=== PATIENT | female | born 1940 | race Caucasian/White ===

== ENCOUNTER 2020-01-16 11:30 | Outpatient (CLI) | payer MEDICARE ==
--- NOTE | 2020-01-16 12:07 | RAD ---
PA AND LATERAL VIEWS CHEST: HISTORY: Shortness of breath. Coronary artery disease. FINDINGS: Comparison is made with the exam of 02/13/2019. The heart size is borderline. The lungs are expanded without focal areas of consolidation, pneumotho races, or pleural effusions. There is no evidence of joe pulmonary edema. Postop changes of left shoulder arthroplasty are again seen. There are degenerative changes in the spine. IMPRESSION: No radiographic evidence of acute cardiopulmonary process. POS: OFF
[2020-01-16 14:04] LABS: #Eosinphils 0.1 thou/uL (0.0-0.7); #Lymphocytes 1.8 thou/uL (1.20-3.40); #Monocytes 0.8 thou/uL (0.11-0.59); #Neutrophils 6.9 thou/uL (1.40-6.50); %Basophils 0.4 % (0.0-1.0); %Eosinophils 1.2 % (0.0-10.0); %Monocytes 7.8 % (0.0-10.0); %Neutrophils 71.7 % (42.0-75.0); Hemoglobin 12.4 g/dL (12.0-16.0); Mean Corpuscular HGB CONC 33.1 g/dL (32.0-36.0); Mean Corpuscular Hemoglobin 30.3 pg (27.0-31.0); Mean Corpuscular Volume 91.5 fL (78.0-98.0); Mean Platelet Volume 10.2 fL (7.4-10.4); Platelet Count 170 thou/uL (130-400); RBC Distribution Width 13.5 % (11.5-14.5); White Blood Cell (WBC) Count 9.6 thou/uL (4.8-10.8)
[2020-01-16 14:22] LABS: ALT (SGPT) 19 U/L (8-55); AST (SGOT) 27 U/L (5-34); Albumin 4.3 g/dL (3.4-4.8); Alkaline Phosphatase 90 U/L (40-110); Anion Gap 16 mmol/L (10-20); BUN (Urea Nitrogen) 16 mg/dL (9.8-20.1); Bilirubin, Total 0.4 mg/dL (0.2-1.2); Calc. Creatinine Clearance 0 mL/min (70-130); Calcium 9.7 mg/dL (7.8-10.44); Carbon Dioxide 25 mmol/L (23-31); Cardiac Risk 5.3 (Less than 4.5); Chloride 104 mmol/L (98-107); Cholesterol 243 mg/dl (< 200 Desired); Estimated GFR-MDRD 45; Glucose 107 mg/dL (83-110); HDL Cholesterol 46 mg/dL (>60 Neg Risk); LDL Cholesterol, Calculated 162 mg/dL; Potassium 3.9 mmol/L (3.5-5.1); Protein, Total 7.3 g/dL (6.0-8.3); Sodium 141 mmol/L (136-145); Triglycerides 175 mg/dL (Less than 150)
[2020-01-16 14:34] LABS: Thyroid Stimulating Hormone 2.3469 uIU/mL (0.35-4.94); Vitamin D, 25 Hydroxy 58.2 ng/ml (> 30.0)
== END 2020-01-16 11:31 | disposition home or self-care (01) ==
LOC: SCSRAD 11:30
PROVIDERS: ATTEND Family Medicine
DX: R05 Cough (principal); E55.9 Vitamin D deficiency, unspecified; E78.00 Pure hypercholesterolemia, unspecified; I10 Essential (primary) hypertension
CPT/HCPCS: 36415; 71046; 80053; 80061; 82306; 84443; 85025

== ENCOUNTER 2020-02-20 10:15 | Outpatient (CLI) | payer MEDICARE ==
--- NOTE | 2020-02-20 11:00 | RAD ---
Exam:3 views left shoulder HISTORY: Fall. Trauma. Pain. Previous fracture. COMPARISON: None FINDINGS: Left humeral prosthesis. No evidence of perihardware lucency. No evidence of malalignment. No acute fractures. Visualized left ribs and lung parenchyma do not demonstrate posttraumatic change. IMPRESSION: No posttraumatic change.
--- NOTE | 2020-02-20 11:06 | RAD ---
Radiograph left leg tibia-fibula 2 views: 02/20/2020 HISTORY: 79-year-old female with acute traumatic left leg pain due to fall FINDINGS: There is an arterial stent within a branch of the popliteal artery in the proximal calf. There is ath erosclerotic calcification superior to that. There is no fracture of the tibia or fibula. IMPRESSION: 1. No fracture. 2. Atherosclerotic disease.
--- NOTE | 2020-02-21 09:30 | RAD ---
LEFT FOOT 3 VIEWS: Date: 02/20/2020 HISTORY: Pain following injury from a fall. FINDINGS: Nondisplaced transverse fracture through the proximal portion of the proximal phalanx of the fifth to e. There is evidence for osteoarthrosis and degenerative change. No acute fracture or dislocation. IMPRESSION: Nondisplaced transverse fracture through the base of the proximal phalanx of the fifth toe. Osteoarth rosis and degenerative change. POS: OFF
--- NOTE | 2020-02-21 09:30 | RAD ---
LEFT HUMERUS 2 VIEWS: HISTORY: Pain, injury from a fall. FINDINGS: Reverse total left shoulder arthroplasty. No evidence for dislocation or periprosthetic fracture. IMPRESSION: Status post left shoulder reverse arthroplasty. No fracture or dislocation. POS: OFF
== END 2020-02-20 10:16 | disposition home or self-care (01) ==
LOC: SCSRAD 10:15
PROVIDERS: ATTEND Family Medicine
DX: M25.512 Pain in left shoulder (principal); S92.515A Nondisplaced fracture of proximal phalanx of left lesser toe(s), initial encounter for closed fracture; M19.072 Primary osteoarthritis, left ankle and foot; I70.90 Unspecified atherosclerosis; Z96.612 Presence of left artificial shoulder joint; W19.XXXA Unspecified fall, initial encounter

== ENCOUNTER 2020-07-21 09:31 | Outpatient (CLI) | payer MEDICARE ==
--- NOTE | 2020-07-21 10:02 | RAD ---
CHEST 2 VIEWS: Date: 07/21/2020 HISTORY: Dyspnea. COMPARISON: 01/16/2020. FINDINGS: Stable left reverse shoulder arthroplasty. Heart size is normal. The lungs show no acute process. Mil d stable chronic appearing lung changes. IMPRESSION: No significant acute intrathoracic disease. POS: OFF
== END 2020-07-21 09:32 | disposition home or self-care (01) ==
LOC: BICRAD 09:31
PROVIDERS: ATTEND Internal Medicine Pulmonary Disease
DX: R06.00 Dyspnea, unspecified (principal)
CPT/HCPCS: 71046

== ENCOUNTER 2020-11-26 10:20 | Outpatient (CLI) | payer MEDICARE | END 2020-11-26 10:21 | disposition home or self-care (01) | LOC: SCSRAD 10:20 | PROVIDERS: ATTEND Family Medicine | DX: W19.XXXS Unspecified fall, sequela (principal); M47.816 Spondylosis without myelopathy or radiculopathy, lumbar region; M43.16 Spondylolisthesis, lumbar region | CPT/HCPCS: 72120 ==

== ENCOUNTER 2021-07-09 18:10 | Inpatient (IN) | payer OTHER ==
[2021-07-09] MEDS ORDERED: Ondansetron PF 4 MG/2 ML Vial IVP PRN (23:34)
[2021-07-09] MEDS ORDERED: Acetaminophen 325 MG TAB PO PRN (23:34)
[2021-07-10] MEDS ORDERED: Pramipexole Di-HCl 0.25 MG TAB PO SCH (00:15)
[2021-07-10 01:05] LABS: Anion Gap 15 mmol/L (10-20); BUN (Urea Nitrogen) 14 mg/dL (9.8-20.1); Calc. Creatinine Clearance 49 mL/min (70-130); Calcium 8.6 mg/dL (7.8-10.44); Carbon Dioxide 26 mmol/L (23-31); Chloride 104 mmol/L (98-107); Glucose 113 mg/dL (83-110); Magnesium 1.8 mg/dL (1.6-2.6); Potassium 3.8 mmol/L (3.5-5.1); Sodium 141 mmol/L (136-145)
[2021-07-10 05:41] LABS: #Eosinphils 0.2 thou/uL (0.0-0.7); #Lymphocytes 1.6 thou/uL (1.20-3.40); #Monocytes 0.7 thou/uL (0.11-0.59); #Neutrophils 4.3 thou/uL (1.40-6.50); %Basophils 0.7 % (0.0-1.0); %Eosinophils 2.6 % (0.0-10.0); %Lymphocytes 23.4 % (21.0-51.0); %Monocytes 10.6 % (0.0-10.0); %Neutrophils 62.7 % (42.0-75.0); Hemoglobin 10.3 g/dL (12.0-16.0); Mean Corpuscular HGB CONC 31.9 g/dL (32.0-36.0); Mean Corpuscular Hemoglobin 29.9 pg (27.0-31.0); Mean Corpuscular Volume 93.6 fL (78.0-98.0); Mean Platelet Volume 9.6 fL (7.4-10.4); Platelet Count 143 thou/uL (130-400); RBC Distribution Width 13.6 % (11.5-14.5); Red Blood Cell (RBC) Count 3.43 mill/uL (4.20-5.40); White Blood Cell (WBC) Count 6.8 thou/uL (4.8-10.8)
[2021-07-10 05:54] LABS: Magnesium 1.8 mg/dL (1.6-2.6)
[2021-07-10] MEDS ORDERED: Furosemide 40 MG/4 ML VIAL SLOW IVP SCH (06:00)
[2021-07-10] MEDS ORDERED: Acetaminophen 325 MG TAB PO PRN (08:05)
[2021-07-10] MEDS ORDERED: hydrALAZINE 20 MG/ML VIAL SLOW IVP PRN (08:08)
[2021-07-10] MEDS ORDERED: Acetaminophen 500 MG TAB PO PRN (08:08)
[2021-07-10] MEDS ORDERED: Nitroglycerin 0.4 MG TAB (25 Tab Bottle) SL PRN (08:08)
[2021-07-10] MEDS ORDERED: Loratadine 10 MG TAB PO PRN (08:08)
[2021-07-10] MEDS ORDERED: Labetalol HCl 100 MG/20 ML VIAL SLOW IVP PRN (08:08)
[2021-07-10] MEDS ORDERED: Acetaminophen 650 MG Suppository PR PRN (08:08)
[2021-07-10] MEDS ORDERED: Senokot S 8.6-50 MG TAB PO PRN (08:08)
[2021-07-10] MEDS ORDERED: Artificial Tear Sol 15 ML BOT EA EYE PRN (08:08)
[2021-07-10] MEDS ORDERED: FLU VACC QS2021-22(65YR UP)/PF 240 MCG/0.7 ML SYRINGE IM ONE (09:00)
[2021-07-10] MEDS ORDERED: Acetaminophen 325 MG Suppository PR PRN (09:46)
[2021-07-10] MEDS: Amlodipine 10 MG TAB PO SCH (10:14)
[2021-07-10] MEDS: Escitalopram Oxalate 20 mg Tablet PO SCH (10:14)
[2021-07-10] MEDS: Enoxaparin Sodium 40 MG/0.4 ML SYRINGE SC SCH (10:14)
[2021-07-10] MEDS: Acetaminophen 325 MG TAB PO PRN ×2 (10:48→15:12)
[2021-07-10] MEDS ORDERED: Aspirin 81 mg Enteric Coated Tablet PO SCH (12:15)
[2021-07-10] MEDS ORDERED: Valsartan 80 MG TAB PO SCH (12:30)
[2021-07-10] MEDS: Furosemide 20 MG/2 ML VIAL SLOW IVP SCH (14:53)
[2021-07-10] MEDS: Carvedilol 3.125 MG TAB PO SCH (17:22)
[2021-07-10] MEDS ORDERED: Atorvastatin Calcium 40 MG TAB PO SCH (21:00)
[2021-07-10] MEDS: Rosuvastatin 10 MG TAB PO SCH (21:20)
[2021-07-10] MEDS: Pramipexole Di-HCl 0.25 MG TAB PO SCH (21:20)
[2021-07-11] MEDS: Acetaminophen 325 MG TAB PO PRN ×2 (03:00→23:15)
[2021-07-11 04:57] LABS: #Eosinphils 0.2 thou/uL (0.0-0.7); #Lymphocytes 1.7 thou/uL (1.20-3.40); #Monocytes 0.7 thou/uL (0.11-0.59); #Neutrophils 3.5 thou/uL (1.40-6.50); %Basophils 0.6 % (0.0-1.0); %Eosinophils 3.1 % (0.0-10.0); %Lymphocytes 28.4 % (21.0-51.0); %Monocytes 10.9 % (0.0-10.0); %Neutrophils 57.1 % (42.0-75.0); Hemoglobin 10.5 g/dL (12.0-16.0); Mean Corpuscular HGB CONC 33.3 g/dL (32.0-36.0); Mean Corpuscular Hemoglobin 30.9 pg (27.0-31.0); Mean Corpuscular Volume 92.9 fL (78.0-98.0); Mean Platelet Volume 9.6 fL (7.4-10.4); Platelet Count 157 thou/uL (130-400); RBC Distribution Width 13.4 % (11.5-14.5); Red Blood Cell (RBC) Count 3.41 mill/uL (4.20-5.40); White Blood Cell (WBC) Count 6.1 thou/uL (4.8-10.8)
[2021-07-11 05:33] LABS: Anion Gap 16 mmol/L (10-20); BUN (Urea Nitrogen) 20 mg/dL (9.8-20.1); Calc. Creatinine Clearance 50 mL/min (70-130); Carbon Dioxide 27 mmol/L (23-31); Chloride 101 mmol/L (98-107); Glucose 106 mg/dL (83-110); Iron 40 ug/dL (50-170); Iron Binding Capacity, Total 356 mcg/dL (265-497); Iron Binding Capacity, Total 358 mcg/dL (265-497); Magnesium 1.7 mg/dL (1.6-2.6); Potassium 3.6 mmol/L (3.5-5.1); Sodium 140 mmol/L (136-145)
[2021-07-11] MEDS: Furosemide 20 MG/2 ML VIAL SLOW IVP SCH (06:06)
[2021-07-11] MEDS: Valsartan 80 MG TAB PO SCH (09:07)
[2021-07-11] MEDS: Aspirin 81 mg Enteric Coated Tablet PO SCH (09:07)
[2021-07-11] MEDS: Escitalopram Oxalate 20 mg Tablet PO SCH (09:08)
[2021-07-11] MEDS: Amlodipine 10 MG TAB PO SCH (09:08)
[2021-07-11] MEDS: Carvedilol 3.125 MG TAB PO SCH ×2 (09:08→17:40)
[2021-07-11] MEDS: Ferrous Sulfate 325 MG TAB PO SCH (09:08)
[2021-07-11] MEDS: Enoxaparin Sodium 40 MG/0.4 ML SYRINGE SC SCH (09:08)
[2021-07-11 14:58] LABS: Bilirubin Negative (Negative); Blood, Urine Negative (Negative); Clarity Clear (Clear); Glucose, Urine (Dipstick) Normal (Negative); Ketone, Urine Negative (Negative); Leukocyte Negative Leu/uL (Negative); Nitrite Negative (Negative); Protein, Urine (Dipstick) Negative (Neg-Trace); RBC/HPF 0-3 HPF (0-3); Specific Gravity, Urine 1.019 (1.002-1.036); Squamous Epithelial 0-3 HPF (0-3); Urobilinogen Normal mg/dL (Less than 2); WBC/HPF 0-3 HPF (0-3); pH, Urine 5.5 (5.0-9.0)
[2021-07-11 14:59] LABS: Bacteria/HPF Rare-Few HPF (None Seen)
[2021-07-11] MEDS: Pramipexole Di-HCl 0.25 MG TAB PO SCH (20:45)
[2021-07-11] MEDS: Rosuvastatin 10 MG TAB PO SCH (20:45)
[2021-07-12 05:08] LABS: #Eosinphils 0.2 thou/uL (0.0-0.7); #Lymphocytes 1.6 thou/uL (1.20-3.40); #Monocytes 0.5 thou/uL (0.11-0.59); #Neutrophils 4.1 thou/uL (1.40-6.50); %Basophils 0.6 % (0.0-1.0); %Eosinophils 3.3 % (0.0-10.0); %Lymphocytes 24.6 % (21.0-51.0); %Monocytes 8.3 % (0.0-10.0); %Neutrophils 63.2 % (42.0-75.0); Hemoglobin 10.5 g/dL (12.0-16.0); Mean Corpuscular HGB CONC 32.8 g/dL (32.0-36.0); Mean Corpuscular Hemoglobin 30.1 pg (27.0-31.0); Mean Corpuscular Volume 91.7 fL (78.0-98.0); Mean Platelet Volume 9.9 fL (7.4-10.4); Platelet Count 157 thou/uL (130-400); RBC Distribution Width 13.4 % (11.5-14.5); Red Blood Cell (RBC) Count 3.49 mill/uL (4.20-5.40); White Blood Cell (WBC) Count 6.5 thou/uL (4.8-10.8)
[2021-07-12 05:16] LABS: Anion Gap 14 mmol/L (10-20); BUN (Urea Nitrogen) 22 mg/dL (9.8-20.1); Calc. Creatinine Clearance 45 mL/min (70-130); Calcium 9.1 mg/dL (7.8-10.44); Carbon Dioxide 28 mmol/L (23-31); Chloride 102 mmol/L (98-107); Glucose 140 mg/dL (83-110); Magnesium 1.8 mg/dL (1.6-2.6); Potassium 3.6 mmol/L (3.5-5.1); Sodium 140 mmol/L (136-145)
[2021-07-12] MEDS: Benzonatate 100 MG CAP PO PRN ×2 (06:25→23:23)
[2021-07-12] MEDS: Aspirin 81 mg Enteric Coated Tablet PO SCH (08:22)
[2021-07-12] MEDS: Ferrous Sulfate 325 MG TAB PO SCH (08:22)
[2021-07-12] MEDS: Spironolactone 25 MG TAB PO SCH (08:22)
[2021-07-12] MEDS: Valsartan 80 MG TAB PO SCH (08:22)
[2021-07-12] MEDS: Escitalopram Oxalate 20 mg Tablet PO SCH (08:22)
[2021-07-12] MEDS: Cyanocobalamin (Vitamin B-12) 1,000 MCG TAB PO SCH (08:22)
[2021-07-12] MEDS: Amlodipine 10 MG TAB PO SCH (08:23)
[2021-07-12] MEDS: Carvedilol 3.125 MG TAB PO SCH (08:23)
[2021-07-12] MEDS: Enoxaparin Sodium 40 MG/0.4 ML SYRINGE SC SCH (08:24)
[2021-07-12] MEDS ORDERED: Carvedilol 3.125 MG TAB PO SCH (09:30)
[2021-07-12] MEDS: Carvedilol 6.25 MG TAB PO SCH (16:53)
[2021-07-12] MEDS: Rosuvastatin 10 MG TAB PO SCH (20:43)
[2021-07-12] MEDS: Acetaminophen 325 MG TAB PO PRN (20:43)
[2021-07-12] MEDS: Pramipexole Di-HCl 0.25 MG TAB PO SCH (20:43)
[2021-07-13 05:56] LABS: Anion Gap 13 mmol/L (10-20); BUN (Urea Nitrogen) 23 mg/dL (9.8-20.1); Calc. Creatinine Clearance 47 mL/min (70-130); Calcium 9.4 mg/dL (7.8-10.44); Carbon Dioxide 27 mmol/L (23-31); Chloride 104 mmol/L (98-107); Glucose 104 mg/dL (83-110); Potassium 4.2 mmol/L (3.5-5.1); Sodium 140 mmol/L (136-145)
[2021-07-13] MEDS ORDERED: Communication Order-Pharmacy FS SCH (06:36)
[2021-07-13] MEDS ORDERED: Vancomycin 1 GM in Premix Bag 1 BAG IVPB SCH (07:00)
[2021-07-13] MEDS: Carvedilol 6.25 MG TAB PO SCH ×2 (08:43→16:26)
[2021-07-13] MEDS: Ferrous Sulfate 325 MG TAB PO SCH (08:43)
[2021-07-13] MEDS: Escitalopram Oxalate 20 mg Tablet PO SCH (08:44)
[2021-07-13] MEDS: Spironolactone 25 MG TAB PO SCH (08:44)
[2021-07-13] MEDS: Amlodipine 10 MG TAB PO SCH (08:44)
[2021-07-13] MEDS: Valsartan 80 MG TAB PO SCH (08:44)
[2021-07-13] MEDS: Cyanocobalamin (Vitamin B-12) 1,000 MCG TAB PO SCH (08:44)
[2021-07-13] MEDS: Enoxaparin Sodium 40 MG/0.4 ML SYRINGE SC SCH (08:45)
[2021-07-13] MEDS: Benzonatate 100 MG CAP PO PRN (19:46)
[2021-07-13] MEDS: Rosuvastatin 10 MG TAB PO SCH (19:46)
[2021-07-13] MEDS: Pramipexole Di-HCl 0.25 MG TAB PO SCH (19:46)
[2021-07-13] MEDS: Acetaminophen 325 MG TAB PO PRN (19:47)
[2021-07-14] MEDS: Cyanocobalamin (Vitamin B-12) 1,000 MCG TAB PO SCH (05:06)
[2021-07-14] MEDS: Spironolactone 25 MG TAB PO SCH (05:06)
[2021-07-14] MEDS: Amlodipine 10 MG TAB PO SCH (05:06)
[2021-07-14] MEDS: Ferrous Sulfate 325 MG TAB PO SCH (05:06)
[2021-07-14] MEDS: Escitalopram Oxalate 20 mg Tablet PO SCH (05:07)
[2021-07-14] MEDS: Carvedilol 6.25 MG TAB PO SCH (05:07)
[2021-07-14] MEDS: Valsartan 80 MG TAB PO SCH (05:07)
[2021-07-14 05:33] LABS: Anion Gap 13 mmol/L (10-20); BUN (Urea Nitrogen) 20 mg/dL (9.8-20.1); Calc. Creatinine Clearance 43 mL/min (70-130); Calcium 9.2 mg/dL (7.8-10.44); Carbon Dioxide 28 mmol/L (23-31); Chloride 106 mmol/L (98-107); Glucose 98 mg/dL (83-110); Potassium 4.2 mmol/L (3.5-5.1); Sodium 143 mmol/L (136-145)
[2021-07-14] MEDS ORDERED: Albumin 5% 500 ML ONE (06:32)
[2021-07-14] MEDS ORDERED: Fentanyl 250 MCG/5 ML VIAL ONE (06:35)
[2021-07-14] MEDS ORDERED: Midazolam HCl 5 mg/5 ml Vial ONE (06:35)
[2021-07-14] MEDS ORDERED: Lidocaine 1% MPF 2 ML VIAL ONE (06:37)
[2021-07-14] MEDS ORDERED: Heparin 10,000 UNITS/1 ML VIAL 30,000 UNITS in Sodium Chloride 0.9% 1,000 ML FS SCH (07:00)
[2021-07-14] MEDS ORDERED: ceFAZolin 2 GM/DEX 5% 100 ML BAG ONE (07:20)
[2021-07-14] MEDS ORDERED: DOPamine 400 MG/10 ML VIAL ONE (07:42)
[2021-07-14] MEDS ORDERED: Calcium Chloride 1 GM/10 ML Abboject SYRINGE ONE (07:42)
[2021-07-14] MEDS ORDERED: Mannitol 12.5 GM/50 ML ONE (07:42)
[2021-07-14] MEDS ORDERED: Ondansetron PF 4 MG/2 ML Vial ONE (07:42)
[2021-07-14] MEDS ORDERED: Lidocaine 2% PF 100 mg/5 ml Syringe ONE (07:42)
[2021-07-14] MEDS ORDERED: PROPOFOL 200 MG/20 ML VIAL ONE (07:42)
[2021-07-14] MEDS ORDERED: Heparin 5,000 UNITS/ML VIAL ONE (07:42)
[2021-07-14] MEDS ORDERED: Vecuronium 10 MG VIAL ONE (07:42)
[2021-07-14] MEDS ORDERED: Thrombin 5000 UNITS/5 ML VIAL ONE (07:42)
[2021-07-14] MEDS ORDERED: Dexamethasone 20 MG/5 ML VIAL ONE (07:42)
[2021-07-14] MEDS ORDERED: Protamine Sulfate 250 MG/25 ML VIAL ONE (07:42)
[2021-07-14] MEDS ORDERED: Rocuronium Bromide 10 MG/ML (10ML VIAL) ONE (07:42)
[2021-07-14] MEDS ORDERED: Cardioplegic Soln 1,000 ML BAG ONE (07:42)
[2021-07-14] MEDS ORDERED: Heparin 30,000 units/30 ml VIAL ONE (07:42)
[2021-07-14] MEDS ORDERED: Aminocaproic Acid 5 GM/20 ML VIAL ONE (07:42)
[2021-07-14] MEDS ORDERED: Sodium Bicarb 50 MEQ/50 ML Abboject 8.4% SYRINGE ONE (07:42)
[2021-07-14] MEDS ORDERED: Magnesium Sulfate 1 GM/2 ML VIAL ONE (07:42)
[2021-07-14] MEDS ORDERED: Potassium Chloride 60 MEQ/30 ML VIAL ONE (07:42)
[2021-07-14] MEDS ORDERED: Papaverine 60 MG/2 ML VIAL ONE (07:42)
[2021-07-14] MEDS ORDERED: PHENYLEPHRINE-NS 100 MCG/ML 10 ML SYRINGE ONE (10:20)
[2021-07-14] MEDS ORDERED: Nitroglycerin 50 MG/250 ML BOT 250 ML IVPB PRN (10:54)
[2021-07-14] MEDS ORDERED: Morphine 2 MG/ML VIAL SLOW IVP PRN (10:54)
[2021-07-14] MEDS ORDERED: Bisacodyl 10 MG SUPP PR PRN (10:54)
[2021-07-14] MEDS ORDERED: Norepinephrine 8 MG/0.9% NS 250 ML IVPB PRN (10:54)
[2021-07-14] MEDS ORDERED: niCARdipine 25 MG in Sodium Chloride 0.9% 250 ML 250 ML IVPB PRN (10:54)
[2021-07-14] MEDS ORDERED: Fentanyl 100 MCG/2 ML VIAL SLOW IVP PRN (10:54)
[2021-07-14] MEDS ORDERED: Hetastarch 6% 500 ML 500 ML IVPB PRN (10:54)
[2021-07-14] MEDS ORDERED: Mag-Al 1200 mg/1200 mg/30 ML UDCUP PO PRN (10:54)
[2021-07-14] MEDS ORDERED: Bisacodyl 5 MG TAB PO PRN (10:54)
[2021-07-14] MEDS ORDERED: Post-Op Insulin Drip Protocol IVPB ONE (10:54)
[2021-07-14] MEDS ORDERED: Potassium Chloride 20 MEQ/100 ML PREMIX BAG IVPB PRN (10:54)
[2021-07-14] MEDS ORDERED: Guaifenesin DM 100-10/5 ML UDCUP PO PRN (10:54)
[2021-07-14] MEDS: Lactated Ringer's 1,000 ML IV SCH (11:20)
[2021-07-14 11:25] LABS: Hemoglobin 11.5 g/dL (12.0-16.0); Mean Corpuscular HGB CONC 32.6 g/dL (32.0-36.0); Mean Corpuscular Hemoglobin 30.3 pg (27.0-31.0); Mean Platelet Volume 9.8 fL (7.4-10.4); Platelet Count 150 thou/uL (130-400); RBC Distribution Width 13.5 % (11.5-14.5); Red Blood Cell (RBC) Count 3.77 mill/uL (4.20-5.40)
[2021-07-14] MEDS ORDERED: Dextrose 5% in Water 1,000 ML IV PRN (11:30)
[2021-07-14] MEDS ORDERED: Morphine 4 MG/ML VIAL SLOW IVP PRN (11:30)
[2021-07-14] MEDS ORDERED: HUMULIN R 100 UNITS in Sodium Chloride 0.9% 100 ML IVPB SCH (11:30)
[2021-07-14] MEDS ORDERED: Dextrose 50% Abboject 50 ML SYRINGE SLOW IVP PRN (11:30)
[2021-07-14 11:37] LABS: Anion Gap 15 mmol/L (10-20); BUN (Urea Nitrogen) 18 mg/dL (9.8-20.1); Calc. Creatinine Clearance 50 mL/min (70-130); Calcium 8.2 mg/dL (7.8-10.44); Carbon Dioxide 21 mmol/L (23-31); Chloride 108 mmol/L (98-107); Glucose 222 mg/dL (83-110); Sodium 139 mmol/L (136-145)
[2021-07-14 11:38] LABS: INR-International Normal Ratio 1.2; PTT 29.1 sec (22.9-36.1); Prothrombin Time 15.7 sec (12.0-14.7)
[2021-07-14 12:04] LABS: Actual Bicarbonate (HCO3a) 22.4 mEq/L (22-28); Base Excess (BEa) -2.2 mEq/L (-2.0 to +3.0); CO2 Tension 37.7 mmHg (35.0-45.0); Calcium, Ionized (arterial) 1.11 mmol/L (1.12-1.30); Carboxyhemoglobin (COHb) 0.1 gm% (0.0-3.0); Hemoglobin (Hb) 11.8 g/dL (12.0-16.0); O2 Tension (PaO2), arterial 86.5 mmHg (> 70.0); Potassium - ABG Lab 4.86 mmol/L (3.70-5.30); Puncture Site Arterial Line; pH, Arterial 7.39 (7.35-7.45)
[2021-07-14 12:05] LABS: ALV-art Gradient 222.875 mmHg (0-20)
[2021-07-14 12:42] LABS: Band 20 % (5-11); Eosinophils 1 % (0-10); Lymphocytes 9 % (21-51); MDiff Complete? YES; Metamyelocyte 2 % (0-0); Monocytes 2 % (0-10); Neutrophil 66 % (42-75); Platelet Morphology Comment Appears Adequate; Polychromasia SLIGHT = 2-3 cells (100X) (0-2/hpf)
[2021-07-14] MEDS ORDERED: ceFAZolin Sodium/D5W 2 GM in Premix Bag 1 BAG IVPB SCH (16:00)
[2021-07-14] MEDS: ceFAZolin 2 GM/Dextrose 50 ML 2 GM in Premix Bag 1 BAG IVPB SCH (16:13)
[2021-07-14 16:50] LABS: Hemoglobin 13.4 g/dL (12.0-16.0)
[2021-07-14 17:04] LABS: Potassium 3.8 mmol/L (3.5-5.1)
[2021-07-14] MEDS: Fentanyl 100 MCG/2 ML VIAL SLOW IVP PRN (17:39)
[2021-07-14] MEDS: Enoxaparin Sodium 40 MG/0.4 ML SYRINGE SC SCH (19:28)
[2021-07-14] MEDS ORDERED: Famotidine/PF 20 mg/2ml Vial SLOW IVP SCH (21:00)
[2021-07-14 23:37] LABS: Actual Bicarbonate (HCO3a) 21.7 mEq/L (22-28); Base Excess (BEa) -3.8 mEq/L (-2.0 to +3.0); CO2 Tension 41.4 mmHg (35.0-45.0); Hemoglobin (Hb) 13.7 g/dL (12.0-16.0); pH, Arterial 7.34 (7.35-7.45)
[2021-07-15] MEDS: DOPamine 400 MG/D5W 250 ML 250 ML IVPB PRN ×2 (00:26→14:57)
[2021-07-15] MEDS: Fentanyl 100 MCG/2 ML VIAL SLOW IVP PRN ×6 (00:26→19:47)
[2021-07-15] MEDS: ceFAZolin 2 GM/Dextrose 50 ML 2 GM in Premix Bag 1 BAG IVPB SCH ×2 (00:26→08:30)
[2021-07-15] MEDS: Lactated Ringer's 1,000 ML IV SCH ×2 (00:27→14:58)
[2021-07-15 04:44] LABS: Anion Gap 14 mmol/L (10-20); BUN (Urea Nitrogen) 23 mg/dL (9.8-20.1); Calc. Creatinine Clearance 34 mL/min (70-130); Calcium 8.8 mg/dL (7.8-10.44); Carbon Dioxide 21 mmol/L (23-31); Chloride 110 mmol/L (98-107); Glucose 148 mg/dL (83-110); Potassium 5.3 mmol/L (3.5-5.1); Sodium 140 mmol/L (136-145)
[2021-07-15 05:03] LABS: Band 15 % (5-11); Hemoglobin 12.9 g/dL (12.0-16.0); Lymphocytes 1 % (21-51); MDiff Complete? YES; Mean Corpuscular HGB CONC 31.8 g/dL (32.0-36.0); Mean Corpuscular Hemoglobin 29.9 pg (27.0-31.0); Mean Corpuscular Volume 93.9 fL (78.0-98.0); Mean Platelet Volume 10.1 fL (7.4-10.4); Monocytes 10 % (0-10); Neutrophil 74 % (42-75); Platelet Count 160 thou/uL (130-400); RBC Distribution Width 13.8 % (11.5-14.5); Red Blood Cell (RBC) Count 4.32 mill/uL (4.20-5.40); White Blood Cell (WBC) Count 28.1 thou/uL (4.8-10.8)
[2021-07-15] MEDS: HYDROcodone/Acetaminophen 5/325 mg Tablet PO PRN ×5 (05:48→21:09)
[2021-07-15] MEDS ORDERED: Lantus 1000 UNITS/10 ML VIAL SC SCH (08:45)
[2021-07-15] MEDS ORDERED: Aspirin 325 MG TAB PO SCH (09:00)
[2021-07-15] MEDS: Ondansetron PF 4 MG/2 ML Vial IVP PRN (09:31)
[2021-07-15] MEDS: Polyethylene Glycol 3350 17 GM Packet PO SCH (09:32)
[2021-07-15] MEDS: Famotidine/PF 20 mg/2ml Vial SLOW IVP SCH ×2 (09:32→20:00)
[2021-07-15] MEDS: Insulin Regular 300 UNITS/3 ML VIAL SC PRN ×2 (11:43→17:15)
[2021-07-15] MEDS ORDERED: Fentanyl 100 MCG/2 ML VIAL ONE (13:45)
[2021-07-15] MEDS: Amiodarone 450 MG, Admixture Fee 1 EACH in Dextrose 5% in Water 250 ML IVPB SCH (23:20)
[2021-07-16 00:13] LABS: O2 Tension (PaO2), arterial 52.8 mmHg (> 70.0)
[2021-07-16 00:14] LABS: Puncture Site Arterial Line
[2021-07-16] MEDS: HYDROcodone/Acetaminophen 5/325 mg Tablet PO PRN ×2 (00:18→03:58)
[2021-07-16] MEDS: Fentanyl 100 MCG/2 ML VIAL SLOW IVP PRN (02:18)
[2021-07-16] MEDS: Lactated Ringer's 1,000 ML IV SCH ×2 (03:43→08:24)
[2021-07-16 05:04] LABS: #Lymphocytes 1.4 thou/uL (1.20-3.40); #Monocytes 1.5 thou/uL (0.11-0.59); #Neutrophils 17.6 thou/uL (1.40-6.50); %Basophils 0.1 % (0.0-1.0); %Eosinophils 0.1 % (0.0-10.0); %Lymphocytes 6.6 % (21.0-51.0); %Monocytes 7.5 % (0.0-10.0); %Neutrophils 85.6 % (42.0-75.0); Mean Corpuscular HGB CONC 32.4 g/dL (32.0-36.0); Mean Corpuscular Hemoglobin 30.3 pg (27.0-31.0); Mean Corpuscular Volume 93.7 fL (78.0-98.0); Mean Platelet Volume 10.5 fL (7.4-10.4); Platelet Count 133 thou/uL (130-400); RBC Distribution Width 13.8 % (11.5-14.5); Red Blood Cell (RBC) Count 3.62 mill/uL (4.20-5.40); White Blood Cell (WBC) Count 20.6 thou/uL (4.8-10.8)
[2021-07-16 05:28] LABS: Anion Gap 14 mmol/L (10-20); BUN (Urea Nitrogen) 35 mg/dL (9.8-20.1); Calc. Creatinine Clearance 22 mL/min (70-130); Calcium 8.5 mg/dL (7.8-10.44); Carbon Dioxide 23 mmol/L (23-31); Chloride 105 mmol/L (98-107); Glucose 149 mg/dL (83-110); Potassium 5.2 mmol/L (3.5-5.1); Sodium 137 mmol/L (136-145)
[2021-07-16] MEDS ORDERED: Calcium Chloride 1 GM/10 ML Abboject SYRINGE ONE (08:06)
[2021-07-16] MEDS ORDERED: Midazolam HCl 2 mg/2 ml Vial ONE (08:08)
[2021-07-16] MEDS: Polyethylene Glycol 3350 17 GM Packet PO SCH (08:25)
[2021-07-16] MEDS: Aspirin Chewable 81 MG TAB PO SCH (08:25)
[2021-07-16] MEDS ORDERED: Midazolam HCl 2 mg/2 ml Vial SLOW IVP SCH (09:00)
[2021-07-16] MEDS ORDERED: Calcium Chloride 1 GM/10 ML Abboject SYRINGE IVP SCH (09:00)
[2021-07-16] MEDS ORDERED: VANCOMYCIN IVPB PRN (09:49)
[2021-07-16] MEDS ORDERED: Furosemide 40 MG/4 ML VIAL SLOW IVP SCH (10:00)
[2021-07-16] MEDS: DOPamine 400 MG/D5W 250 ML 250 ML IVPB PRN (11:05)
[2021-07-16] MEDS ORDERED: Phenylephrine 40 MG/NS 250 ML 10 MG in Premix Bag 1 BAG IVPB SCH (11:15)
[2021-07-16] MEDS ORDERED: VANCOMYCIN 1.25 GM/250 ML BAG 1.25 GM in Premix Bag 1 BAG IVPB SCH (12:00)
[2021-07-16] MEDS: Phenylephrine 40 MG in Sodium Chloride 0.9% 250 ML 250 ML IVPB SCH ×2 (12:14→23:04)
[2021-07-16] MEDS: Cefepime 1 GM in Sodium Chloride 0.9% 100 ML IVPB SCH ×2 (12:27→18:04)
[2021-07-16] MEDS: Insulin Regular 300 UNITS/3 ML VIAL SC PRN (12:34)
[2021-07-16] MEDS: Amiodarone 450 MG, Admixture Fee 1 EACH in Dextrose 5% in Water 250 ML IVPB SCH (15:27)
[2021-07-16] MEDS: Albumin 25% 25 GM/100 ML BOT IVPB SCH ×2 (16:09→22:23)
[2021-07-16 16:20] LABS: Bacteria/HPF 2+ HPF (None Seen); Bilirubin Negative (Negative); Blood, Urine 2+ (Negative); Clarity Turbid (Clear); Glucose, Urine (Dipstick) Normal (Negative); Ketone, Urine Trace mg/dL (Negative); Leukocyte 250 Leu/uL (Negative); Mucous/LPF Rare LPF (<2+); Nitrite Negative (Negative); Protein, Urine (Dipstick) 30 mg/dL (Neg-Trace); RBC/HPF 21-50 HPF (0-3); Renal Epithelial 0-3 HPF (None Seen); Specific Gravity, Urine 1.024 (1.002-1.036); Squamous Epithelial 0-3 HPF (0-3); Urobilinogen Normal mg/dL (Less than 2); WBC/HPF Greater than 50 HPF (0-3)
[2021-07-16] MEDS: Famotidine 20 MG TAB PO SCH (20:35)
[2021-07-16] MEDS: traMADol HCl 50 MG TAB PO PRN (20:36)
[2021-07-17] MEDS: Cefepime 1 GM in Sodium Chloride 0.9% 100 ML IVPB SCH ×2 (04:09→15:35)
[2021-07-17] MEDS: Lactated Ringer's 1,000 ML IV SCH ×2 (04:09→22:45)
[2021-07-17] MEDS: Albumin 25% 25 GM/100 ML BOT IVPB SCH ×4 (04:10→21:29)
[2021-07-17 04:31] LABS: #Eosinphils 0.1 thou/uL (0.0-0.7); #Lymphocytes 1.2 thou/uL (1.20-3.40); #Monocytes 1.3 thou/uL (0.11-0.59); #Neutrophils 13.3 thou/uL (1.40-6.50); %Basophils 0.1 % (0.0-1.0); %Eosinophils 0.4 % (0.0-10.0); %Lymphocytes 7.5 % (21.0-51.0); %Monocytes 8.1 % (0.0-10.0); %Neutrophils 83.8 % (42.0-75.0); Hemoglobin 10.1 g/dL (12.0-16.0); Mean Corpuscular HGB CONC 31.8 g/dL (32.0-36.0); Mean Corpuscular Hemoglobin 30.1 pg (27.0-31.0); Mean Corpuscular Volume 94.6 fL (78.0-98.0); Mean Platelet Volume 10.4 fL (7.4-10.4); Platelet Count 123 thou/uL (130-400); RBC Distribution Width 13.5 % (11.5-14.5); Red Blood Cell (RBC) Count 3.34 mill/uL (4.20-5.40); White Blood Cell (WBC) Count 15.8 thou/uL (4.8-10.8)
[2021-07-17 04:49] LABS: Anion Gap 16 mmol/L (10-20); BUN (Urea Nitrogen) 43 mg/dL (9.8-20.1); Calc. Creatinine Clearance 18 mL/min (70-130); Calcium 9.1 mg/dL (7.8-10.44); Carbon Dioxide 20 mmol/L (23-31); Chloride 103 mmol/L (98-107); Glucose 128 mg/dL (83-110); Potassium 4.9 mmol/L (3.5-5.1); Sodium 134 mmol/L (136-145)
[2021-07-17] MEDS: Aspirin Chewable 81 MG TAB PO SCH (08:16)
[2021-07-17] MEDS: Polyethylene Glycol 3350 17 GM Packet PO SCH (08:16)
[2021-07-17] MEDS: Amiodarone 450 MG, Admixture Fee 1 EACH in Dextrose 5% in Water 250 ML IVPB SCH ×2 (09:23→22:44)
[2021-07-17] MEDS ORDERED: VANCOMYCIN IVPB SCH (12:00)
[2021-07-17 13:09] LABS: Vancomycin, Random 21.7 ug/mL (See Comment)
[2021-07-17] MEDS ORDERED: Vancomycin 1 GM in Premix Bag 1 BAG IVPB SCH (13:30)
[2021-07-17] MEDS: Insulin Regular 300 UNITS/3 ML VIAL SC PRN (15:42)
[2021-07-17] MEDS: traMADol HCl 50 MG TAB PO PRN (16:32)
[2021-07-17] MEDS: Famotidine 20 MG TAB PO SCH (20:50)
[2021-07-18] MEDS: Albumin 25% 25 GM/100 ML BOT IVPB SCH ×3 (03:26→15:41)
[2021-07-18] MEDS: Cefepime 1 GM in Sodium Chloride 0.9% 100 ML IVPB SCH ×2 (03:28→15:41)
[2021-07-18 04:49] LABS: #Eosinphils 0.1 thou/uL (0.0-0.7); #Lymphocytes 0.9 thou/uL (1.20-3.40); #Monocytes 0.5 thou/uL (0.11-0.59); #Neutrophils 6.9 thou/uL (1.40-6.50); %Basophils 0.1 % (0.0-1.0); %Eosinophils 1.3 % (0.0-10.0); %Lymphocytes 10.6 % (21.0-51.0); Hemoglobin 9.3 g/dL (12.0-16.0); Mean Corpuscular Hemoglobin 30.3 pg (27.0-31.0); Mean Corpuscular Volume 94.6 fL (78.0-98.0); Mean Platelet Volume 10.3 fL (7.4-10.4); Platelet Count 107 thou/uL (130-400); RBC Distribution Width 13.5 % (11.5-14.5); Red Blood Cell (RBC) Count 3.07 mill/uL (4.20-5.40); White Blood Cell (WBC) Count 8.4 thou/uL (4.8-10.8)
[2021-07-18 04:57] LABS: Anion Gap 16 mmol/L (10-20); BUN (Urea Nitrogen) 52 mg/dL (9.8-20.1); Calc. Creatinine Clearance 0 mL/min (70-130); Calcium 8.6 mg/dL (7.8-10.44); Carbon Dioxide 19 mmol/L (23-31); Chloride 103 mmol/L (98-107); Glucose 115 mg/dL (83-110); Potassium 4.4 mmol/L (3.5-5.1); Sodium 134 mmol/L (136-145)
[2021-07-18] MEDS: traMADol HCl 50 MG TAB PO PRN ×3 (05:25→20:53)
[2021-07-18] MEDS: Aspirin Chewable 81 MG TAB PO SCH (09:18)
[2021-07-18] MEDS: Polyethylene Glycol 3350 17 GM Packet PO SCH (09:18)
[2021-07-18] MEDS: DOPamine 400 MG/D5W 250 ML 250 ML IVPB PRN (09:19)
[2021-07-18 09:46] LABS: Bilirubin Negative (Negative); Blood, Urine Small (Negative); Glucose, Urine (Dipstick) Negative (Negative); Ketone, Urine Trace mg/dL (Negative); Leukocyte Negative (Negative); Nitrite Negative (Negative); Protein, Urine (Dipstick) 30 mg/dL (Neg-Trace); Urobilinogen 0.2 mg/dL (Less than 2)
[2021-07-18 09:49] LABS: Clarity Hazy (Clear); Specific Gravity, Urine 1.019 (1.002-1.036)
[2021-07-18 10:00] LABS: RBC/HPF 0-3 HPF (0-3)
[2021-07-18 10:01] LABS: Squamous Epithelial 0-3 HPF (0-3)
[2021-07-18 10:02] LABS: Bacteria/HPF 1+ HPF (None Seen)
[2021-07-18] MEDS: Amiodarone 450 MG, Admixture Fee 1 EACH in Dextrose 5% in Water 250 ML IVPB SCH (10:58)
[2021-07-18] MEDS: Insulin Regular 300 UNITS/3 ML VIAL SC PRN (12:08)
[2021-07-18] MEDS: Lactated Ringer's 1,000 ML IV SCH ×2 (13:43→23:33)
[2021-07-18 16:15] LABS: Vancomycin, Random 30.9 ug/mL (See Comment)
[2021-07-18] MEDS: Famotidine 20 MG TAB PO SCH (20:55)
[2021-07-18] MEDS: Acetaminophen 325 MG TAB PO PRN (23:31)
[2021-07-19] MEDS: Lactated Ringer's 1,000 ML IV SCH (02:08)
[2021-07-19] MEDS: traMADol HCl 50 MG TAB PO PRN ×2 (02:16→05:46)
[2021-07-19] MEDS: Amiodarone 450 MG, Admixture Fee 1 EACH in Dextrose 5% in Water 250 ML IVPB SCH ×2 (02:41→20:35)
[2021-07-19] MEDS: Cefepime 1 GM in Sodium Chloride 0.9% 100 ML IVPB SCH ×2 (03:27→15:48)
[2021-07-19 04:38] LABS: #Eosinphils 0.1 thou/uL (0.0-0.7); #Lymphocytes 0.7 thou/uL (1.20-3.40); #Monocytes 0.7 thou/uL (0.11-0.59); #Neutrophils 8.4 thou/uL (1.40-6.50); %Basophils 0.4 % (0.0-1.0); %Eosinophils 1.4 % (0.0-10.0); %Lymphocytes 7.1 % (21.0-51.0); %Monocytes 7.3 % (0.0-10.0); %Neutrophils 83.8 % (42.0-75.0); Hemoglobin 9.6 g/dL (12.0-16.0); Mean Corpuscular HGB CONC 32.1 g/dL (32.0-36.0); Mean Corpuscular Hemoglobin 30.2 pg (27.0-31.0); Mean Corpuscular Volume 93.9 fL (78.0-98.0); Mean Platelet Volume 10.3 fL (7.4-10.4); Platelet Count 153 thou/uL (130-400); RBC Distribution Width 13.6 % (11.5-14.5); Red Blood Cell (RBC) Count 3.19 mill/uL (4.20-5.40)
[2021-07-19 04:59] LABS: Anion Gap 16 mmol/L (10-20); BUN (Urea Nitrogen) 56 mg/dL (9.8-20.1); Calc. Creatinine Clearance 16 mL/min (70-130); Calcium 8.8 mg/dL (7.8-10.44); Carbon Dioxide 19 mmol/L (23-31); Chloride 102 mmol/L (98-107); Glucose 115 mg/dL (83-110); Potassium 4.4 mmol/L (3.5-5.1); Sodium 133 mmol/L (136-145)
[2021-07-19] MEDS: DOPamine 400 MG/D5W 250 ML 250 ML IVPB PRN ×2 (05:37→22:28)
[2021-07-19] MEDS: Ondansetron PF 4 MG/2 ML Vial IVP PRN (05:43)
[2021-07-19] MEDS: Polyethylene Glycol 3350 17 GM Packet PO SCH (09:00)
[2021-07-19] MEDS ORDERED: Metolazone 5 MG TAB PO SCH (10:00)
[2021-07-19] MEDS ORDERED: Furosemide 100 MG/10 ML VIAL SLOW IVP SCH (10:00)
[2021-07-19] MEDS ORDERED: Furosemide 40 MG/4 ML VIAL SLOW IVP SCH (10:00)
[2021-07-19] MEDS: Escitalopram Oxalate 20 mg Tablet PO SCH (10:23)
[2021-07-19] MEDS: Aspirin Chewable 81 MG TAB PO SCH (10:25)
[2021-07-19] MEDS ORDERED: Heparin 10,000 UNITS/ 10 ML VIAL ONE (15:43)
[2021-07-19] MEDS ORDERED: Vancomycin 1 GM in Premix Bag 1 BAG IVPB SCH (16:30)
[2021-07-19 17:21] LABS: Vancomycin, Trough 22.2 ug/mL
[2021-07-19 17:43] LABS: HBSAg Index 0.32 S/CO (0-0.99); Hep B Surf Ag Non-Reactive S/CO (NonReactive)
[2021-07-19] MEDS: Famotidine 20 MG TAB PO SCH (20:45)
[2021-07-19] MEDS: Insulin Regular 300 UNITS/3 ML VIAL SC PRN (20:52)
[2021-07-20] MEDS: Cefepime 1 GM in Sodium Chloride 0.9% 100 ML IVPB SCH ×2 (04:47→14:55)
[2021-07-20 05:09] LABS: #Eosinphils 0.2 thou/uL (0.0-0.7); #Lymphocytes 0.7 thou/uL (1.20-3.40); #Neutrophils 9.3 thou/uL (1.40-6.50); %Basophils 0.3 % (0.0-1.0); %Lymphocytes 6.2 % (21.0-51.0); %Monocytes 8.8 % (0.0-10.0); %Neutrophils 82.7 % (42.0-75.0); Hemoglobin 9.8 g/dL (12.0-16.0); Mean Corpuscular HGB CONC 32.5 g/dL (32.0-36.0); Mean Corpuscular Volume 92.3 fL (78.0-98.0); Mean Platelet Volume 9.9 fL (7.4-10.4); Platelet Count 150 thou/uL (130-400); RBC Distribution Width 13.5 % (11.5-14.5); Red Blood Cell (RBC) Count 3.24 mill/uL (4.20-5.40); White Blood Cell (WBC) Count 11.2 thou/uL (4.8-10.8)
[2021-07-20 05:31] LABS: Anion Gap 15 mmol/L (10-20); BUN (Urea Nitrogen) 40 mg/dL (9.8-20.1); Calc. Creatinine Clearance 16 mL/min (70-130); Calcium 9.1 mg/dL (7.8-10.44); Carbon Dioxide 22 mmol/L (23-31); Chloride 100 mmol/L (98-107); Glucose 111 mg/dL (83-110); Potassium 4.1 mmol/L (3.5-5.1); Sodium 133 mmol/L (136-145)
[2021-07-20] MEDS: Aspirin Chewable 81 MG TAB PO SCH (08:42)
[2021-07-20] MEDS: Polyethylene Glycol 3350 17 GM Packet PO SCH (08:42)
[2021-07-20] MEDS ORDERED: Amiodarone 200 MG TAB PO SCH (09:00)
[2021-07-20] MEDS: Escitalopram Oxalate 20 mg Tablet PO SCH (09:33)
[2021-07-20] MEDS ORDERED: Heparin 10,000 UNITS/ 10 ML VIAL ONE (09:56)
[2021-07-20] MEDS: DOPamine 400 MG/D5W 250 ML 250 ML IVPB PRN (14:56)
[2021-07-20] MEDS: Amiodarone 450 MG, Admixture Fee 1 EACH in Dextrose 5% in Water 250 ML IVPB SCH (14:56)
[2021-07-20 17:33] LABS: Vancomycin, Random 16.9 ug/mL (See Comment)
[2021-07-20] MEDS ORDERED: Vancomycin 1 GM in Premix Bag 1 BAG IVPB SCH (18:30)
[2021-07-20] MEDS: Vancomycin HCl 750 MG in Sodium Chloride 0.9% 250 ML 250 ML IVPB SCH (19:45)
[2021-07-20] MEDS: Famotidine 20 MG TAB PO SCH (21:44)
[2021-07-21] MEDS: Amiodarone 450 MG, Admixture Fee 1 EACH in Dextrose 5% in Water 250 ML IVPB SCH ×2 (03:16→15:06)
[2021-07-21] MEDS: Cefepime 1 GM in Sodium Chloride 0.9% 100 ML IVPB SCH ×2 (03:50→17:18)
[2021-07-21 04:44] LABS: #Eosinphils 0.2 thou/uL (0.0-0.7); #Lymphocytes 1.3 thou/uL (1.20-3.40); #Monocytes 1.8 thou/uL (0.11-0.59); #Neutrophils 10.8 thou/uL (1.40-6.50); %Basophils 0.1 % (0.0-1.0); %Eosinophils 1.5 % (0.0-10.0); %Lymphocytes 9.2 % (21.0-51.0); %Monocytes 12.6 % (0.0-10.0); %Neutrophils 76.6 % (42.0-75.0); Hemoglobin 9.6 g/dL (12.0-16.0); Mean Corpuscular HGB CONC 32.3 g/dL (32.0-36.0); Mean Corpuscular Hemoglobin 29.8 pg (27.0-31.0); Mean Corpuscular Volume 92.3 fL (78.0-98.0); Platelet Count 169 thou/uL (130-400); Red Blood Cell (RBC) Count 3.21 mill/uL (4.20-5.40); White Blood Cell (WBC) Count 14.1 thou/uL (4.8-10.8)
[2021-07-21 05:05] LABS: Anion Gap 17 mmol/L (10-20); BUN (Urea Nitrogen) 25 mg/dL (9.8-20.1); Calc. Creatinine Clearance 24 mL/min (70-130); Calcium 8.6 mg/dL (7.8-10.44); Carbon Dioxide 22 mmol/L (23-31); Chloride 99 mmol/L (98-107); Glucose 115 mg/dL (83-110); Sodium 134 mmol/L (136-145)
[2021-07-21] MEDS: Aspirin Chewable 81 MG TAB PO SCH (08:05)
[2021-07-21] MEDS: Polyethylene Glycol 3350 17 GM Packet PO SCH (08:06)
[2021-07-21] MEDS: Heparin 5,000 UNITS/ML VIAL SC SCH ×2 (09:20→21:09)
[2021-07-21] MEDS: Haloperidol Lactate 5 MG/ML VIAL SLOW IVP PRN (09:21)
[2021-07-21] MEDS ORDERED: Heparin 10,000 UNITS/ 10 ML VIAL ONE (09:45)
[2021-07-21] MEDS: Escitalopram Oxalate 20 mg Tablet PO SCH (10:38)
[2021-07-21] MEDS ORDERED: HOLD VANCOMYCIN FOR LEVEL >20 FS SCH (11:15)
[2021-07-21] MEDS ORDERED: Vancomycin 1 GM in Premix Bag 1 BAG IVPB SCH (11:15)
[2021-07-21] MEDS ORDERED: Vancomycin HCl 1.25 GM in Sodium Chloride 0.9% 250 ML 250 ML IVPB SCH (11:15)
[2021-07-21] MEDS ORDERED: Vancomycin HCl 500 MG in Sodium Chloride 0.9% 100 ML IVPB SCH (11:15)
[2021-07-21] MEDS ORDERED: Vancomycin HCl 750 MG in Sodium Chloride 0.9% 250 ML 250 ML IVPB SCH (11:15)
[2021-07-21 12:40] LABS: Vancomycin, Random 20.1 ug/mL (See Comment)
[2021-07-21] MEDS: Vancomycin HCl 750 MG in Sodium Chloride 0.9% 250 ML 250 ML IVPB SCH (20:56)
[2021-07-21] MEDS: DOPamine 400 MG/D5W 250 ML 250 ML IVPB PRN (20:58)
[2021-07-21] MEDS: Dexmedetomidine 1,000 MCG in Sodium Chloride 0.9% 250 ML 240 ML IVPB SCH (20:59)
[2021-07-21] MEDS: Atorvastatin Calcium 40 MG TAB PO SCH (21:09)
[2021-07-21] MEDS: Famotidine 20 MG TAB PO SCH (21:09)
[2021-07-22 03:50] LABS: #Eosinphils 0.3 thou/uL (0.0-0.7); #Neutrophils 9.7 thou/uL (1.40-6.50); %Basophils 0.2 % (0.0-1.0); %Eosinophils 2.8 % (0.0-10.0); %Lymphocytes 8.1 % (21.0-51.0); %Monocytes 8.3 % (0.0-10.0); %Neutrophils 80.7 % (42.0-75.0); Hemoglobin 9.5 g/dL (12.0-16.0); Mean Corpuscular HGB CONC 32.6 g/dL (32.0-36.0); Mean Corpuscular Hemoglobin 30.4 pg (27.0-31.0); Mean Corpuscular Volume 93.3 fL (78.0-98.0); Mean Platelet Volume 9.4 fL (7.4-10.4); Platelet Count 140 thou/uL (130-400); RBC Distribution Width 13.9 % (11.5-14.5); Red Blood Cell (RBC) Count 3.11 mill/uL (4.20-5.40)
[2021-07-22 04:09] LABS: Anion Gap 15 mmol/L (10-20); BUN (Urea Nitrogen) 22 mg/dL (9.8-20.1); Calc. Creatinine Clearance 26 mL/min (70-130); Calcium 8.4 mg/dL (7.8-10.44); Carbon Dioxide 24 mmol/L (23-31); Chloride 101 mmol/L (98-107); Glucose 120 mg/dL (83-110); Potassium 3.8 mmol/L (3.5-5.1); Sodium 136 mmol/L (136-145)
[2021-07-22] MEDS: Amiodarone 450 MG, Admixture Fee 1 EACH in Dextrose 5% in Water 250 ML IVPB SCH ×2 (07:35→22:30)
[2021-07-22] MEDS: Aspirin Chewable 81 MG TAB PO SCH (09:30)
[2021-07-22] MEDS: Heparin 5,000 UNITS/ML VIAL SC SCH ×2 (09:30→20:07)
[2021-07-22] MEDS: Polyethylene Glycol 3350 17 GM Packet PO SCH (09:30)
[2021-07-22] MEDS: Escitalopram Oxalate 20 mg Tablet PO SCH (09:31)
[2021-07-22] MEDS: Dexmedetomidine 1,000 MCG in Sodium Chloride 0.9% 250 ML 240 ML IVPB SCH ×2 (09:39→20:06)
[2021-07-22] MEDS ORDERED: Heparin 10,000 UNITS/ 10 ML VIAL ONE (09:48)
[2021-07-22] MEDS: Cefepime 1 GM in Sodium Chloride 0.9% 100 ML IVPB SCH (16:57)
[2021-07-22] MEDS: Famotidine 20 MG TAB PO SCH (20:06)
[2021-07-22] MEDS: Atorvastatin Calcium 40 MG TAB PO SCH (20:06)
[2021-07-22] MEDS: DOPamine 400 MG/D5W 250 ML 250 ML IVPB PRN (22:57)
[2021-07-22] MEDS: Acetaminophen 325 MG TAB PO PRN (23:18)
[2021-07-23 04:35] LABS: #Basophils 0.1 thou/uL (0.0-0.2); #Eosinphils 0.2 thou/uL (0.0-0.7); #Lymphocytes 1.4 thou/uL (1.20-3.40); #Monocytes 1.1 thou/uL (0.11-0.59); #Neutrophils 12.2 thou/uL (1.40-6.50); %Basophils 0.3 % (0.0-1.0); %Eosinophils 1.6 % (0.0-10.0); %Lymphocytes 9.2 % (21.0-51.0); %Monocytes 7.2 % (0.0-10.0); %Neutrophils 81.7 % (42.0-75.0); Hemoglobin 9.6 g/dL (12.0-16.0); Mean Corpuscular HGB CONC 33.8 g/dL (32.0-36.0); Mean Corpuscular Hemoglobin 31.7 pg (27.0-31.0); Mean Corpuscular Volume 93.6 fL (78.0-98.0); Mean Platelet Volume 10.4 fL (7.4-10.4); Platelet Count 150 thou/uL (130-400); RBC Distribution Width 14.1 % (11.5-14.5); Red Blood Cell (RBC) Count 3.04 mill/uL (4.20-5.40); White Blood Cell (WBC) Count 14.9 thou/uL (4.8-10.8)
[2021-07-23 04:54] LABS: Anion Gap 17 mmol/L (10-20); BUN (Urea Nitrogen) 23 mg/dL (9.8-20.1); Calc. Creatinine Clearance 25 mL/min (70-130); Calcium 8.6 mg/dL (7.8-10.44); Carbon Dioxide 22 mmol/L (23-31); Chloride 99 mmol/L (98-107); Glucose 104 mg/dL (83-110); Potassium 3.6 mmol/L (3.5-5.1); Sodium 134 mmol/L (136-145)
[2021-07-23] MEDS: Dexmedetomidine 1,000 MCG in Sodium Chloride 0.9% 250 ML 240 ML IVPB SCH (06:08)
[2021-07-23 09:14] LABS: Actual Bicarbonate (HCO3v) 22 mEq/L (22-28); Base Excess -2.5 mEq/L (-2.0 to +3.0); Calcium, Ionized (venous) 1.04 mmol/L (1.16-1.32); Chloride (VBG) 99 mmol/L (98-106); Hemoglobin (Hb) 10.4 g/dL (11.7-16.1); Potassium (VBG) 3.51 mmol/L (3.70-5.30); Sodium 132.6 mmol/L (133-146); pH (venous) 7.41 (7.32-7.43)
[2021-07-23] MEDS: Heparin 5,000 UNITS/ML VIAL SC SCH ×2 (09:58→21:12)
[2021-07-23] MEDS ORDERED: Aspirin 300 MG Suppository PR SCH (10:00)
[2021-07-23] MEDS: Amiodarone 450 MG, Admixture Fee 1 EACH in Dextrose 5% in Water 250 ML IVPB SCH (10:07)
[2021-07-23] MEDS: Escitalopram Oxalate 20 mg Tablet PO SCH (11:31)
[2021-07-23] MEDS: traMADol HCl 50 MG TAB PO PRN ×2 (11:38→22:56)
[2021-07-23] MEDS: Acetaminophen 325 MG TAB PO PRN ×2 (12:53→18:36)
[2021-07-23] MEDS ORDERED: Amlodipine 5 MG TAB PO SCH (14:00)
[2021-07-23] MEDS: ALPRAZolam 0.25 MG TAB PO PRN ×2 (14:07→23:29)
[2021-07-23] MEDS: Aspirin Chewable 81 MG TAB PO SCH (14:40)
[2021-07-23] MEDS: Polyethylene Glycol 3350 17 GM Packet PO SCH (14:40)
[2021-07-23] MEDS: Cefepime 1 GM in Sodium Chloride 0.9% 100 ML IVPB SCH (17:05)
[2021-07-23] MEDS ORDERED: Morphine 4 MG/ML VIAL SLOW IVP SCH (18:53)
[2021-07-23] MEDS ORDERED: Morphine 4 MG/ML VIAL ONE (18:55)
[2021-07-23] MEDS: Ondansetron PF 4 MG/2 ML Vial IVP PRN ×2 (19:00→22:56)
[2021-07-23] MEDS: Famotidine 20 MG TAB PO SCH (21:12)
[2021-07-23] MEDS: hydrALAZINE 20 MG/ML VIAL SLOW IVP PRN (21:12)
[2021-07-23] MEDS: Atorvastatin Calcium 40 MG TAB PO SCH (21:12)
[2021-07-24] MEDS: Amiodarone 450 MG, Admixture Fee 1 EACH in Dextrose 5% in Water 250 ML IVPB SCH ×2 (01:19→14:42)
[2021-07-24] MEDS ORDERED: Melatonin 3 MG TAB PO SCH (02:45)
[2021-07-24 05:36] LABS: Anion Gap 20 mmol/L (10-20); BUN (Urea Nitrogen) 32 mg/dL (9.8-20.1); Calc. Creatinine Clearance 18 mL/min (70-130); Carbon Dioxide 22 mmol/L (23-31); Chloride 97 mmol/L (98-107); Glucose 126 mg/dL (83-110); Potassium 3.6 mmol/L (3.5-5.1); Sodium 135 mmol/L (136-145)
[2021-07-24 05:58] LABS: Hemoglobin 9.7 g/dL (12.0-16.0); Mean Corpuscular HGB CONC 31.7 g/dL (32.0-36.0); Mean Corpuscular Hemoglobin 29.7 pg (27.0-31.0); Mean Corpuscular Volume 93.6 fL (78.0-98.0); Mean Platelet Volume 10.2 fL (7.4-10.4); Platelet Count 220 thou/uL (130-400); RBC Distribution Width 14.5 % (11.5-14.5); Red Blood Cell (RBC) Count 3.26 mill/uL (4.20-5.40); White Blood Cell (WBC) Count 20.8 thou/uL (4.8-10.8)
[2021-07-24 06:04] LABS: Band 15 % (5-11); Lymphocytes 3 % (21-51); MDiff Complete? YES; Monocytes 10 % (0-10); Neutrophil 72 % (42-75)
[2021-07-24] MEDS: hydrALAZINE 20 MG/ML VIAL SLOW IVP PRN (06:39)
[2021-07-24] MEDS: ALPRAZolam 0.25 MG TAB PO PRN ×3 (06:39→15:54)
[2021-07-24] MEDS: Polyethylene Glycol 3350 17 GM Packet PO SCH (07:45)
[2021-07-24] MEDS: Heparin 5,000 UNITS/ML VIAL SC SCH ×2 (07:47→20:23)
[2021-07-24] MEDS: Aspirin Chewable 81 MG TAB PO SCH (07:47)
[2021-07-24] MEDS: Amlodipine 5 MG TAB PO SCH (07:47)
[2021-07-24] MEDS: Ondansetron PF 4 MG/2 ML Vial IVP PRN ×2 (07:56→14:17)
[2021-07-24] MEDS ORDERED: Heparin 10,000 UNITS/ 10 ML VIAL ONE (08:24)
[2021-07-24] MEDS: Escitalopram Oxalate 20 mg Tablet PO SCH (10:32)
[2021-07-24] MEDS: Cefepime 1 GM in Sodium Chloride 0.9% 100 ML IVPB SCH (15:54)
[2021-07-24] MEDS: Haloperidol Lactate 5 MG/ML VIAL SLOW IVP PRN (17:15)
[2021-07-24] MEDS: Famotidine 20 MG TAB PO SCH (20:23)
[2021-07-24] MEDS: Atorvastatin Calcium 40 MG TAB PO SCH (20:23)
[2021-07-25 04:21] LABS: #Basophils 0.1 thou/uL (0.0-0.2); #Eosinphils 0.1 thou/uL (0.0-0.7); #Lymphocytes 1.5 thou/uL (1.20-3.40); #Monocytes 1.3 thou/uL (0.11-0.59); #Neutrophils 18.6 thou/uL (1.40-6.50); %Basophils 0.2 % (0.0-1.0); %Eosinophils 0.5 % (0.0-10.0); %Lymphocytes 6.8 % (21.0-51.0); %Neutrophils 86.4 % (42.0-75.0); Hemoglobin 9.2 g/dL (12.0-16.0); Mean Corpuscular HGB CONC 32.5 g/dL (32.0-36.0); Mean Corpuscular Hemoglobin 30.6 pg (27.0-31.0); Mean Platelet Volume 9.8 fL (7.4-10.4); Platelet Count 171 thou/uL (130-400); RBC Distribution Width 14.6 % (11.5-14.5); White Blood Cell (WBC) Count 21.5 thou/uL (4.8-10.8)
[2021-07-25 04:39] LABS: Anion Gap 18 mmol/L (10-20); BUN (Urea Nitrogen) 34 mg/dL (9.8-20.1); Calc. Creatinine Clearance 16 mL/min (70-130); Calcium 9.1 mg/dL (7.8-10.44); Carbon Dioxide 25 mmol/L (23-31); Chloride 97 mmol/L (98-107); Glucose 106 mg/dL (83-110); Magnesium 2.2 mg/dL (1.6-2.6); Potassium 3.4 mmol/L (3.5-5.1); Sodium 137 mmol/L (136-145)
[2021-07-25] MEDS: Amiodarone 450 MG, Admixture Fee 1 EACH in Dextrose 5% in Water 250 ML IVPB SCH ×2 (05:52→23:10)
[2021-07-25] MEDS: Heparin 5,000 UNITS/ML VIAL SC SCH ×2 (07:03→20:15)
[2021-07-25] MEDS: Amlodipine 5 MG TAB PO SCH (07:03)
[2021-07-25] MEDS: Polyethylene Glycol 3350 17 GM Packet PO SCH (07:03)
[2021-07-25] MEDS: Aspirin Chewable 81 MG TAB PO SCH (07:03)
[2021-07-25] MEDS: ALPRAZolam 0.25 MG TAB PO PRN ×2 (09:45→17:29)
[2021-07-25] MEDS: Escitalopram Oxalate 20 mg Tablet PO SCH (13:21)
[2021-07-25] MEDS: Cefepime 1 GM in Sodium Chloride 0.9% 100 ML IVPB SCH (17:03)
[2021-07-25] MEDS: traMADol HCl 50 MG TAB PO PRN (18:36)
[2021-07-25] MEDS: Famotidine 20 MG TAB PO SCH (20:15)
[2021-07-25] MEDS: Atorvastatin Calcium 40 MG TAB PO SCH (20:15)
[2021-07-26 04:36] LABS: #Basophils 0.1 thou/uL (0.0-0.2); #Eosinphils 0.3 thou/uL (0.0-0.7); #Lymphocytes 1.8 thou/uL (1.20-3.40); #Monocytes 1.4 thou/uL (0.11-0.59); #Neutrophils 15.8 thou/uL (1.40-6.50); %Basophils 0.3 % (0.0-1.0); %Eosinophils 1.5 % (0.0-10.0); %Lymphocytes 9.2 % (21.0-51.0); %Monocytes 7.4 % (0.0-10.0); %Neutrophils 81.6 % (42.0-75.0); Hemoglobin 8.6 g/dL (12.0-16.0); Mean Corpuscular HGB CONC 32.8 g/dL (32.0-36.0); Mean Corpuscular Hemoglobin 30.9 pg (27.0-31.0); Mean Platelet Volume 9.9 fL (7.4-10.4); Platelet Count 154 thou/uL (130-400); RBC Distribution Width 14.9 % (11.5-14.5); Red Blood Cell (RBC) Count 2.79 mill/uL (4.20-5.40); White Blood Cell (WBC) Count 19.3 thou/uL (4.8-10.8)
[2021-07-26 04:40] LABS: Anion Gap 16 mmol/L (10-20); BUN (Urea Nitrogen) 44 mg/dL (9.8-20.1); Calc. Creatinine Clearance 12 mL/min (70-130); Calcium 8.8 mg/dL (7.8-10.44); Carbon Dioxide 26 mmol/L (23-31); Chloride 96 mmol/L (98-107); Glucose 93 mg/dL (83-110); Magnesium 2.2 mg/dL (1.6-2.6); Potassium 3.2 mmol/L (3.5-5.1); Sodium 135 mmol/L (136-145)
[2021-07-26] MEDS: Polyethylene Glycol 3350 17 GM Packet PO SCH (08:02)
[2021-07-26] MEDS: Amlodipine 5 MG TAB PO SCH (08:05)
[2021-07-26] MEDS: Aspirin Chewable 81 MG TAB PO SCH (08:05)
[2021-07-26] MEDS: Escitalopram Oxalate 20 mg Tablet PO SCH (08:05)
[2021-07-26] MEDS: Heparin 5,000 UNITS/ML VIAL SC SCH ×2 (08:06→20:44)
[2021-07-26] MEDS: traMADol HCl 50 MG TAB PO PRN ×2 (08:09→20:44)
[2021-07-26] MEDS ORDERED: Potassium Chloride 20 MEQ TAB PO SCH (10:45)
[2021-07-26] MEDS: Amiodarone 450 MG, Admixture Fee 1 EACH in Dextrose 5% in Water 250 ML IVPB SCH (11:48)
[2021-07-26] MEDS: Cefepime 1 GM in Sodium Chloride 0.9% 100 ML IVPB SCH (15:51)
[2021-07-26] MEDS: Atorvastatin Calcium 40 MG TAB PO SCH (20:44)
[2021-07-26] MEDS: Famotidine 20 MG TAB PO SCH (20:44)
[2021-07-26] MEDS: Clobetasol 0.05% Cream 15 gm Tube TOP SCH (21:50)
[2021-07-27] MEDS: ALPRAZolam 0.25 MG TAB PO PRN ×2 (00:36→21:57)
[2021-07-27 04:22] LABS: Anion Gap 18 mmol/L (10-20); BUN (Urea Nitrogen) 54 mg/dL (9.8-20.1); Calc. Creatinine Clearance 10 mL/min (70-130); Calcium 8.9 mg/dL (7.8-10.44); Carbon Dioxide 23 mmol/L (23-31); Chloride 98 mmol/L (98-107); Glucose 99 mg/dL (83-110); Magnesium 2.2 mg/dL (1.6-2.6); Sodium 135 mmol/L (136-145)
[2021-07-27 06:14] LABS: Hemoglobin 8.4 g/dL (12.0-16.0); Mean Corpuscular HGB CONC 31.9 g/dL (32.0-36.0); Mean Corpuscular Hemoglobin 30.1 pg (27.0-31.0); Mean Corpuscular Volume 94.5 fL (78.0-98.0); Mean Platelet Volume 10.2 fL (7.4-10.4); Platelet Count 159 thou/uL (130-400); White Blood Cell (WBC) Count 20.1 thou/uL (4.8-10.8)
[2021-07-27] MEDS: Amiodarone 450 MG, Admixture Fee 1 EACH in Dextrose 5% in Water 250 ML IVPB SCH (06:28)
[2021-07-27 06:45] LABS: Band 11 % (5-11); Eosinophils 1 % (0-10); Lymphocytes 8 % (21-51); MDiff Complete? YES; Monocytes 9 % (0-10); Neutrophil 71 % (42-75)
[2021-07-27] MEDS: Aspirin Chewable 81 MG TAB PO SCH (07:52)
[2021-07-27] MEDS: Heparin 5,000 UNITS/ML VIAL SC SCH ×2 (07:52→20:13)
[2021-07-27] MEDS: Amlodipine 5 MG TAB PO SCH (07:52)
[2021-07-27] MEDS: Clobetasol 0.05% Cream 15 gm Tube TOP SCH (07:53)
[2021-07-27] MEDS: Polyethylene Glycol 3350 17 GM Packet PO SCH (07:53)
[2021-07-27] MEDS ORDERED: Heparin 10,000 UNITS/ 10 ML VIAL ONE (09:03)
[2021-07-27] MEDS: Escitalopram Oxalate 20 mg Tablet PO SCH (11:05)
[2021-07-27] MEDS: Cefepime 1 GM in Sodium Chloride 0.9% 100 ML IVPB SCH (17:24)
[2021-07-27] MEDS: Atorvastatin Calcium 40 MG TAB PO SCH (20:09)
[2021-07-27] MEDS: Amiodarone 200 MG TAB PO SCH (20:10)
[2021-07-27] MEDS: traMADol HCl 50 MG TAB PO PRN (20:10)
[2021-07-27] MEDS: Famotidine 20 MG TAB PO SCH (20:10)
[2021-07-28] MEDS: Clobetasol 0.05% Cream 15 gm Tube TOP SCH ×3 (00:24→20:42)
[2021-07-28 04:08] LABS: #Basophils 0.1 thou/uL (0.0-0.2); #Eosinphils 0.2 thou/uL (0.0-0.7); #Neutrophils 13.5 thou/uL (1.40-6.50); %Basophils 0.4 % (0.0-1.0); %Eosinophils 1.1 % (0.0-10.0); %Lymphocytes 11.3 % (21.0-51.0); %Monocytes 11.2 % (0.0-10.0); %Neutrophils 76.1 % (42.0-75.0); Hemoglobin 8.4 g/dL (12.0-16.0); Mean Corpuscular HGB CONC 32.4 g/dL (32.0-36.0); Mean Corpuscular Volume 95.8 fL (78.0-98.0); Mean Platelet Volume 10.6 fL (7.4-10.4); Platelet Count 142 thou/uL (130-400); RBC Distribution Width 15.5 % (11.5-14.5); White Blood Cell (WBC) Count 17.8 thou/uL (4.8-10.8)
[2021-07-28 04:21] LABS: Anion Gap 15 mmol/L (10-20); BUN (Urea Nitrogen) 26 mg/dL (9.8-20.1); Calc. Creatinine Clearance 17 mL/min (70-130); Calcium 8.7 mg/dL (7.8-10.44); Carbon Dioxide 28 mmol/L (23-31); Chloride 99 mmol/L (98-107); Glucose 108 mg/dL (83-110); Magnesium 2.1 mg/dL (1.6-2.6); Potassium 3.9 mmol/L (3.5-5.1); Sodium 138 mmol/L (136-145)
[2021-07-28] MEDS: Polyethylene Glycol 3350 17 GM Packet PO SCH (09:49)
[2021-07-28] MEDS: Heparin 5,000 UNITS/ML VIAL SC SCH ×2 (09:49→20:43)
[2021-07-28] MEDS: Aspirin Chewable 81 MG TAB PO SCH (09:49)
[2021-07-28] MEDS: Amiodarone 200 MG TAB PO SCH ×2 (09:49→20:42)
[2021-07-28] MEDS: Escitalopram Oxalate 20 mg Tablet PO SCH (09:50)
[2021-07-28] MEDS: Cefepime 1 GM in Sodium Chloride 0.9% 100 ML IVPB SCH (16:31)
[2021-07-28] MEDS: Atorvastatin Calcium 40 MG TAB PO SCH (20:42)
[2021-07-28] MEDS: Famotidine 20 MG TAB PO SCH (20:42)
[2021-07-28] MEDS: ALPRAZolam 0.25 MG TAB PO PRN (20:42)
[2021-07-29 00:18] LABS: SARS-CoV-2 NAA Rapid Test Not Detected (NotDetected)
[2021-07-29] MEDS: Acetaminophen 325 MG TAB PO PRN ×2 (03:54→22:10)
[2021-07-29 04:21] LABS: #Eosinphils 0.2 thou/uL (0.0-0.7); #Lymphocytes 1.1 thou/uL (1.20-3.40); #Monocytes 1.7 thou/uL (0.11-0.59); #Neutrophils 10.9 thou/uL (1.40-6.50); %Basophils 0.2 % (0.0-1.0); %Eosinophils 1.5 % (0.0-10.0); %Monocytes 12.4 % (0.0-10.0); %Neutrophils 77.9 % (42.0-75.0); Hemoglobin 7.9 g/dL (12.0-16.0); Mean Corpuscular HGB CONC 32.8 g/dL (32.0-36.0); Mean Corpuscular Hemoglobin 31.6 pg (27.0-31.0); Mean Corpuscular Volume 96.3 fL (78.0-98.0); Mean Platelet Volume 10.9 fL (7.4-10.4); Platelet Count 129 thou/uL (130-400); RBC Distribution Width 15.4 % (11.5-14.5)
[2021-07-29 04:28] LABS: Anion Gap 14 mmol/L (10-20); BUN (Urea Nitrogen) 38 mg/dL (9.8-20.1); Calc. Creatinine Clearance 12 mL/min (70-130); Calcium 8.8 mg/dL (7.8-10.44); Carbon Dioxide 28 mmol/L (23-31); Chloride 100 mmol/L (98-107); Glucose 101 mg/dL (83-110); Sodium 138 mmol/L (136-145)
[2021-07-29] MEDS: Polyethylene Glycol 3350 17 GM Packet PO SCH (08:33)
[2021-07-29] MEDS: Aspirin Chewable 81 MG TAB PO SCH (08:33)
[2021-07-29] MEDS: Heparin 5,000 UNITS/ML VIAL SC SCH ×2 (08:33→22:12)
[2021-07-29] MEDS: Clobetasol 0.05% Cream 15 gm Tube TOP SCH ×2 (08:33→22:12)
[2021-07-29] MEDS ORDERED: Heparin 10,000 UNITS/ 10 ML VIAL ONE ×2 (08:58→10:53)
[2021-07-29] MEDS ORDERED: Fentanyl 100 MCG/2 ML VIAL ONE (10:47)
[2021-07-29] MEDS ORDERED: Sodium Chloride 0.9% 20 ML ONE (10:53)
[2021-07-29] MEDS ORDERED: EPINEPHrine 1 MG/ML AMP ONE (10:53)
[2021-07-29] MEDS ORDERED: Bupivacaine PF 0.5% 30 ML VIAL ONE (10:53)
[2021-07-29] MEDS ORDERED: PROPOFOL 40 ML ONE (11:24)
[2021-07-29] MEDS ORDERED: Ketamine 50 MG/ML (10ML VIAL) ONE (12:13)
[2021-07-29] MEDS ORDERED: Promethazine HCl 25 MG/ML VIAL IM PRN (12:15)
[2021-07-29] MEDS ORDERED: Ondansetron HCl/PF 4 MG/2 ML Vial IVP PRN (12:15)
[2021-07-29] MEDS ORDERED: Promethazine HCl 25 MG/ML VIAL IVPB PRN (12:15)
[2021-07-29] MEDS ORDERED: PACU-Morphine 4MG/ML VIAL SLOW IVP PRN (12:15)
[2021-07-29] MEDS ORDERED: Ondansetron PF 4 MG/2 ML Vial ONE (12:16)
[2021-07-29] MEDS: Escitalopram Oxalate 20 mg Tablet PO SCH (13:20)
[2021-07-29] MEDS: Amiodarone 200 MG TAB PO SCH ×2 (13:20→22:10)
[2021-07-29] MEDS: Ferrous Sulfate 325 MG TAB PO SCH (16:52)
[2021-07-29] MEDS: Famotidine 20 MG TAB PO SCH (22:09)
[2021-07-29] MEDS: Atorvastatin Calcium 40 MG TAB PO SCH (22:09)
[2021-07-29] MEDS: ALPRAZolam 0.25 MG TAB PO PRN (22:09)
[2021-07-29] MEDS: traMADol HCl 50 MG TAB PO PRN (22:11)
[2021-07-30 03:41] LABS: #Basophils 0.1 thou/uL (0.0-0.2); #Eosinphils 0.3 thou/uL (0.0-0.7); #Lymphocytes 1.2 thou/uL (1.20-3.40); #Monocytes 1.9 thou/uL (0.11-0.59); #Neutrophils 11.2 thou/uL (1.40-6.50); %Basophils 0.4 % (0.0-1.0); %Eosinophils 1.9 % (0.0-10.0); %Lymphocytes 8.5 % (21.0-51.0); %Neutrophils 76.2 % (42.0-75.0); Mean Corpuscular HGB CONC 31.7 g/dL (32.0-36.0); Mean Corpuscular Hemoglobin 30.6 pg (27.0-31.0); Mean Corpuscular Volume 96.5 fL (78.0-98.0); Mean Platelet Volume 10.7 fL (7.4-10.4); Platelet Count 126 thou/uL (130-400); RBC Distribution Width 15.5 % (11.5-14.5); White Blood Cell (WBC) Count 14.7 thou/uL (4.8-10.8)
[2021-07-30 04:02] LABS: Anion Gap 15 mmol/L (10-20); BUN (Urea Nitrogen) 22 mg/dL (9.8-20.1); Calc. Creatinine Clearance 16 mL/min (70-130); Calcium 8.9 mg/dL (7.8-10.44); Carbon Dioxide 28 mmol/L (23-31); Chloride 100 mmol/L (98-107); Glucose 104 mg/dL (83-110); Potassium 3.9 mmol/L (3.5-5.1); Sodium 139 mmol/L (136-145)
[2021-07-30] MEDS: Acetaminophen 325 MG TAB PO PRN (04:02)
[2021-07-30] MEDS: Heparin 5,000 UNITS/ML VIAL SC SCH ×2 (09:11→21:07)
[2021-07-30] MEDS: Clobetasol 0.05% Cream 15 gm Tube TOP SCH ×2 (09:11→21:08)
[2021-07-30] MEDS: Escitalopram Oxalate 20 mg Tablet PO SCH (09:11)
[2021-07-30] MEDS: Amiodarone 200 MG TAB PO SCH ×2 (09:11→21:07)
[2021-07-30] MEDS: Aspirin Chewable 81 MG TAB PO SCH (09:11)
[2021-07-30] MEDS: Polyethylene Glycol 3350 17 GM Packet PO SCH (09:11)
[2021-07-30] MEDS: Ferrous Sulfate 325 MG TAB PO SCH ×2 (09:11→16:36)
[2021-07-30] MEDS: Atorvastatin Calcium 40 MG TAB PO SCH (21:07)
[2021-07-30] MEDS: ALPRAZolam 0.25 MG TAB PO PRN (21:07)
[2021-07-30] MEDS: Famotidine 20 MG TAB PO SCH (21:07)
[2021-07-31] MEDS: Acetaminophen 325 MG TAB PO PRN ×2 (01:35→21:00)
[2021-07-31 04:57] LABS: #Basophils 0.1 thou/uL (0.0-0.2); #Eosinphils 0.4 thou/uL (0.0-0.7); #Lymphocytes 1.5 thou/uL (1.20-3.40); #Monocytes 1.9 thou/uL (0.11-0.59); #Neutrophils 10.8 thou/uL (1.40-6.50); %Basophils 0.5 % (0.0-1.0); %Eosinophils 2.9 % (0.0-10.0); %Lymphocytes 9.9 % (21.0-51.0); %Monocytes 12.7 % (0.0-10.0); Hemoglobin 8.5 g/dL (12.0-16.0); Mean Corpuscular HGB CONC 31.8 g/dL (32.0-36.0); Mean Corpuscular Hemoglobin 31.5 pg (27.0-31.0); Mean Corpuscular Volume 99.1 fL (78.0-98.0); Mean Platelet Volume 11.2 fL (7.4-10.4); Platelet Count 140 thou/uL (130-400); RBC Distribution Width 15.8 % (11.5-14.5); Red Blood Cell (RBC) Count 2.69 mill/uL (4.20-5.40); White Blood Cell (WBC) Count 14.6 thou/uL (4.8-10.8)
[2021-07-31 05:16] LABS: Anion Gap 18 mmol/L (10-20); BUN (Urea Nitrogen) 34 mg/dL (9.8-20.1); Calc. Creatinine Clearance 12 mL/min (70-130); Calcium 9.1 mg/dL (7.8-10.44); Carbon Dioxide 22 mmol/L (23-31); Chloride 101 mmol/L (98-107); Glucose 105 mg/dL (83-110); Sodium 137 mmol/L (136-145)
[2021-07-31] MEDS: ALPRAZolam 0.25 MG TAB PO PRN ×2 (05:59→14:22)
[2021-07-31] MEDS: Amiodarone 200 MG TAB PO SCH ×2 (08:58→20:53)
[2021-07-31] MEDS: Escitalopram Oxalate 20 mg Tablet PO SCH (08:58)
[2021-07-31] MEDS: Heparin 5,000 UNITS/ML VIAL SC SCH ×2 (08:59→20:54)
[2021-07-31] MEDS: Clobetasol 0.05% Cream 15 gm Tube TOP SCH ×2 (08:59→20:54)
[2021-07-31] MEDS: Aspirin Chewable 81 MG TAB PO SCH (08:59)
[2021-07-31] MEDS: Polyethylene Glycol 3350 17 GM Packet PO SCH (08:59)
[2021-07-31] MEDS: Ferrous Sulfate 325 MG TAB PO SCH ×2 (08:59→16:48)
[2021-07-31] MEDS ORDERED: Heparin 10,000 UNITS/ 10 ML VIAL ONE (10:54)
[2021-07-31 12:58] LABS: Actual Bicarbonate (HCO3a) 24.3 mEq/L (22-28); Analyzer IN Cardio OR; Base Excess (BEa) -1.4 mEq/L (-2.0 to +3.0); CO2 Tension 45.5 mmHg (35.0-45.0); Calcium, Ionized (arterial) 1.04 mmol/L (1.12-1.30); Carboxyhemoglobin (COHb) 0.8 gm% (0.0-3.0); Hemoglobin (Hb) 8.9 g/dL (12.0-16.0); O2 Tension (PaO2), arterial 181.7 mmHg (> 70.0); Potassium - ABG Lab 3.68 mmol/L (3.70-5.30); pH, Arterial 7.35 (7.35-7.45)
[2021-07-31 12:58] LABS: Actual Bicarbonate (HCO3a) 22.9 mEq/L (22-28); Analyzer IN Cardio OR; Base Excess (BEa) -0.7 mEq/L (-2.0 to +3.0); CO2 Tension 32.7 mmHg (35.0-45.0); Calcium, Ionized (arterial) 0.97 mmol/L (1.12-1.30); Carboxyhemoglobin (COHb) 0.9 gm% (0.0-3.0); O2 Tension (PaO2), arterial 373.5 mmHg (> 70.0); Potassium - ABG Lab 4.66 mmol/L (3.70-5.30); pH, Arterial 7.46 (7.35-7.45)
[2021-07-31 13:01] LABS: Puncture Site Arterial Line
[2021-07-31 13:02] LABS: Actual Bicarbonate (HCO3a) 25.3 mEq/L (22-28); Analyzer IN Cardio OR; Base Excess (BEa) 1.3 mEq/L (-2.0 to +3.0); Calcium, Ionized (arterial) 1.24 mmol/L (1.12-1.30); Carboxyhemoglobin (COHb) 0.7 gm% (0.0-3.0); Hemoglobin (Hb) 7.6 g/dL (12.0-16.0); O2 Tension (PaO2), arterial 418.3 mmHg (> 70.0); Potassium - ABG Lab 5.01 mmol/L (3.70-5.30); pH, Arterial 7.45 (7.35-7.45)
[2021-07-31 13:02] LABS: Actual Bicarbonate (HCO3v) 24 mEq/L (22-28); Analyzer IN Cardio OR; Base Excess -0.3 mEq/L (-2.0 to +3.0); Calcium, Ionized (venous) 0.99 mmol/L (1.16-1.32); Chloride (VBG) 106 mmol/L (98-106); Hemoglobin (Hb) 6.1 g/dL (11.7-16.1); Potassium (VBG) 4.71 mmol/L (3.70-5.30); Sodium 134.9 mmol/L (133-146); pH (venous) 7.42 (7.32-7.43)
[2021-07-31 13:03] LABS: Actual Bicarbonate (HCO3a) 23.5 mEq/L (22-28); Analyzer IN Cardio OR; Base Excess (BEa) -1.3 mEq/L (-2.0 to +3.0); CO2 Tension 39.9 mmHg (35.0-45.0); Calcium, Ionized (arterial) 1.08 mmol/L (1.12-1.30); Carboxyhemoglobin (COHb) 0.3 gm% (0.0-3.0); Hemoglobin (Hb) 9.4 g/dL (12.0-16.0); O2 Tension (PaO2), arterial 235.7 mmHg (> 70.0); Potassium - ABG Lab 4.72 mmol/L (3.70-5.30); pH, Arterial 7.39 (7.35-7.45)
[2021-07-31 13:03] LABS: Puncture Site Arterial Line
[2021-07-31 13:04] LABS: Puncture Site Arterial Line
[2021-07-31 13:04] LABS: Puncture Site Arterial Line
[2021-07-31] MEDS ORDERED: diphenhydrAMINE 25 MG CAP PO PRN (20:02)
[2021-07-31] MEDS: Atorvastatin Calcium 40 MG TAB PO SCH (20:53)
[2021-07-31] MEDS: Famotidine 20 MG TAB PO SCH (20:53)
[2021-07-31] MEDS: Melatonin 3 MG TAB PO PRN (23:48)
[2021-08-01 05:13] LABS: Anion Gap 15 mmol/L (10-20); BUN (Urea Nitrogen) 19 mg/dL (9.8-20.1); Calc. Creatinine Clearance 18 mL/min (70-130); Calcium 8.8 mg/dL (7.8-10.44); Carbon Dioxide 27 mmol/L (23-31); Chloride 98 mmol/L (98-107); Glucose 91 mg/dL (83-110); Potassium 3.7 mmol/L (3.5-5.1); Sodium 136 mmol/L (136-145)
[2021-08-01 05:29] LABS: #Basophils 0.1 thou/uL (0.0-0.2); #Eosinphils 0.4 thou/uL (0.0-0.7); #Lymphocytes 1.5 thou/uL (1.20-3.40); #Monocytes 1.6 thou/uL (0.11-0.59); #Neutrophils 9.2 thou/uL (1.40-6.50); %Basophils 0.5 % (0.0-1.0); %Lymphocytes 11.6 % (21.0-51.0); %Monocytes 12.6 % (0.0-10.0); %Neutrophils 72.3 % (42.0-75.0); Hemoglobin 8.5 g/dL (12.0-16.0); Mean Corpuscular HGB CONC 32.3 g/dL (32.0-36.0); Mean Corpuscular Hemoglobin 31.3 pg (27.0-31.0); Mean Platelet Volume 11.2 fL (7.4-10.4); Platelet Count 116 thou/uL (130-400); Platelet Morphology Comment Appears Decreased; RBC Distribution Width 15.6 % (11.5-14.5); Red Blood Cell (RBC) Count 2.72 mill/uL (4.20-5.40); White Blood Cell (WBC) Count 12.7 thou/uL (4.8-10.8)
[2021-08-01] MEDS: Polyethylene Glycol 3350 17 GM Packet PO SCH (08:51)
[2021-08-01] MEDS: Clobetasol 0.05% Cream 15 gm Tube TOP SCH ×2 (08:52→20:34)
[2021-08-01] MEDS: Ferrous Sulfate 325 MG TAB PO SCH ×2 (08:53→16:31)
[2021-08-01] MEDS: Heparin 5,000 UNITS/ML VIAL SC SCH ×2 (08:53→20:34)
[2021-08-01] MEDS: Aspirin Chewable 81 MG TAB PO SCH (08:53)
[2021-08-01] MEDS: Amiodarone 200 MG TAB PO SCH ×2 (08:53→20:33)
[2021-08-01] MEDS: Escitalopram Oxalate 20 mg Tablet PO SCH (09:12)
[2021-08-01] MEDS: Acetaminophen 325 MG TAB PO PRN (09:12)
[2021-08-01] MEDS: HYDROcodone/Acetaminophen 5/325 mg Tablet PO PRN (16:31)
[2021-08-01] MEDS: Melatonin 3 MG TAB PO PRN (20:33)
[2021-08-01] MEDS: Famotidine 20 MG TAB PO SCH (20:33)
[2021-08-01] MEDS: Atorvastatin Calcium 40 MG TAB PO SCH (20:33)
[2021-08-02] MEDS: HYDROcodone/Acetaminophen 5/325 mg Tablet PO PRN ×4 (04:52→22:08)
[2021-08-02 05:11] LABS: #Basophils 0.1 thou/uL (0.0-0.2); #Eosinphils 0.3 thou/uL (0.0-0.7); #Lymphocytes 1.6 thou/uL (1.20-3.40); #Monocytes 1.6 thou/uL (0.11-0.59); #Neutrophils 9.3 thou/uL (1.40-6.50); %Basophils 0.5 % (0.0-1.0); %Eosinophils 2.2 % (0.0-10.0); %Lymphocytes 12.4 % (21.0-51.0); %Monocytes 12.4 % (0.0-10.0); %Neutrophils 72.6 % (42.0-75.0); Hemoglobin 8.8 g/dL (12.0-16.0); Mean Corpuscular HGB CONC 32.4 g/dL (32.0-36.0); Mean Corpuscular Hemoglobin 31.1 pg (27.0-31.0); Mean Platelet Volume 10.8 fL (7.4-10.4); Platelet Count 124 thou/uL (130-400); RBC Distribution Width 15.4 % (11.5-14.5); Red Blood Cell (RBC) Count 2.83 mill/uL (4.20-5.40); White Blood Cell (WBC) Count 12.8 thou/uL (4.8-10.8)
[2021-08-02 05:45] LABS: Anion Gap 15 mmol/L (10-20); BUN (Urea Nitrogen) 30 mg/dL (9.8-20.1); Calc. Creatinine Clearance 13 mL/min (70-130); Calcium 9.3 mg/dL (7.8-10.44); Carbon Dioxide 28 mmol/L (23-31); Chloride 98 mmol/L (98-107); Glucose 88 mg/dL (83-110); Potassium 3.8 mmol/L (3.5-5.1); Sodium 137 mmol/L (136-145)
[2021-08-02] MEDS: Clobetasol 0.05% Cream 15 gm Tube TOP SCH ×2 (08:37→22:08)
[2021-08-02] MEDS: Polyethylene Glycol 3350 17 GM Packet PO SCH (08:37)
[2021-08-02] MEDS: Ferrous Sulfate 325 MG TAB PO SCH ×2 (08:37→15:34)
[2021-08-02] MEDS: Aspirin Chewable 81 MG TAB PO SCH (08:37)
[2021-08-02] MEDS: Amiodarone 200 MG TAB PO SCH ×2 (08:38→21:57)
[2021-08-02] MEDS: Heparin 5,000 UNITS/ML VIAL SC SCH (08:38)
[2021-08-02] MEDS: Cyanocobalamin (Vitamin B-12) 1,000 MCG TAB PO SCH (08:40)
[2021-08-02] MEDS: Escitalopram Oxalate 20 mg Tablet PO SCH (08:49)
[2021-08-02] MEDS: Famotidine 20 MG TAB PO SCH (21:57)
[2021-08-02] MEDS: Atorvastatin Calcium 40 MG TAB PO SCH (21:57)
[2021-08-03] MEDS: Heparin 5,000 UNITS/ML VIAL SC SCH ×3 (04:26→21:17)
[2021-08-03] MEDS: HYDROcodone/Acetaminophen 5/325 mg Tablet PO PRN ×2 (04:26→08:31)
[2021-08-03] MEDS: Amiodarone 200 MG TAB PO SCH ×2 (08:31→21:18)
[2021-08-03] MEDS: ALPRAZolam 0.25 MG TAB PO SCH ×3 (08:31→21:18)
[2021-08-03] MEDS: Aspirin Chewable 81 MG TAB PO SCH (08:31)
[2021-08-03] MEDS ORDERED: Heparin 10,000 UNITS/ 10 ML VIAL ONE (08:45)
[2021-08-03] MEDS: Cyanocobalamin (Vitamin B-12) 1,000 MCG TAB PO SCH (09:42)
[2021-08-03] MEDS: Ferrous Sulfate 325 MG TAB PO SCH ×2 (09:42→16:44)
[2021-08-03] MEDS: Clobetasol 0.05% Cream 15 gm Tube TOP SCH ×2 (09:42→21:19)
[2021-08-03] MEDS: Polyethylene Glycol 3350 17 GM Packet PO SCH (09:43)
[2021-08-03] MEDS ORDERED: Tuberculin PPD 0.1 ML VIAL I-DERMAL SCH (16:30)
[2021-08-03] MEDS: Escitalopram Oxalate 20 mg Tablet PO SCH (16:44)
[2021-08-03 18:01] LABS: HBCM Index 0.08 S/CO (0-0.79); HBSAg Index 0.35 S/CO (0-0.99); Hep A IgM AB Non-Reactive (NonReactive); Hep A IgM S/CO 0.23 S/CO (0-0.79); Hep B Surf Ag Non-Reactive S/CO (NonReactive); Hep C IgG Ab Non-Reactive (NonReactive); Hep C Index 0.47 S/CO (0-0.79); Hepatitis B Core IgM Abs Non-Reactive (NonReactive)
[2021-08-03 19:19] LABS: #Basophils 0.1 thou/uL (0.0-0.2); #Eosinphils 0.3 thou/uL (0.0-0.7); #Lymphocytes 1.2 thou/uL (1.20-3.40); #Monocytes 1.2 thou/uL (0.11-0.59); #Neutrophils 9.6 thou/uL (1.40-6.50); %Basophils 0.4 % (0.0-1.0); %Eosinophils 2.3 % (0.0-10.0); %Lymphocytes 9.6 % (21.0-51.0); %Monocytes 9.6 % (0.0-10.0); %Neutrophils 78.1 % (42.0-75.0); Hemoglobin 8.7 g/dL (12.0-16.0); Mean Corpuscular HGB CONC 31.5 g/dL (32.0-36.0); Mean Corpuscular Hemoglobin 30.7 pg (27.0-31.0); Mean Corpuscular Volume 97.5 fL (78.0-98.0); Mean Platelet Volume 10.6 fL (7.4-10.4); Platelet Count 143 thou/uL (130-400); RBC Distribution Width 15.7 % (11.5-14.5); Red Blood Cell (RBC) Count 2.84 mill/uL (4.20-5.40); White Blood Cell (WBC) Count 12.3 thou/uL (4.8-10.8)
[2021-08-03 19:53] LABS: ALT (SGPT) Less than 7 U/L (8-55); AST (SGOT) 19 U/L (5-34); Albumin 3.7 g/dL (3.4-4.8); Alkaline Phosphatase 70 U/L (40-110); Anion Gap 16 mmol/L (10-20); BUN (Urea Nitrogen) 18 mg/dL (9.8-20.1); Bilirubin, Direct 0.4 mg/dL (0.1-0.3); Bilirubin, Total 0.7 mg/dL (0.2-1.2); Calc. Creatinine Clearance 18 mL/min (70-130); Calcium 9.1 mg/dL (7.8-10.44); Carbon Dioxide 28 mmol/L (23-31); Chloride 98 mmol/L (98-107); Glucose 91 mg/dL (83-110); Potassium 4.1 mmol/L (3.5-5.1); Protein, Total 6.4 g/dL (5.8-8.1); Sodium 138 mmol/L (136-145)
[2021-08-03 19:57] LABS: HBSAB Concentration Less than 8.00 mIU/mL; HBSAg Index 0.22 S/CO (0-0.99); Hep B Core Total Ab Non-Reactive (NonReactive); Hep B Core Total Index 0.07 S/CO (0-0.79); Hep B Surf AB Non-Reactive (NonReactive); Hep B Surf Ag Non-Reactive S/CO (NonReactive); Hep C IgG Ab Non-Reactive (NonReactive); Hep C Index 0.43 S/CO (0-0.79)
[2021-08-03] MEDS: Atorvastatin Calcium 40 MG TAB PO SCH (21:18)
[2021-08-03] MEDS: Famotidine 20 MG TAB PO SCH (21:18)
[2021-08-04] MEDS ORDERED: Calamine/Zinc Oxide 177 ML LOTION TP PRN (01:29)
[2021-08-04] MEDS ORDERED: Famotidine 20 MG TAB PO SCH (01:45)
[2021-08-04] MEDS: Aspirin Chewable 81 MG TAB PO SCH (08:52)
[2021-08-04] MEDS: Polyethylene Glycol 3350 17 GM Packet PO SCH (08:52)
[2021-08-04] MEDS: Amiodarone 200 MG TAB PO SCH ×2 (08:52→21:26)
[2021-08-04] MEDS: Cyanocobalamin (Vitamin B-12) 1,000 MCG TAB PO SCH (08:52)
[2021-08-04] MEDS: ALPRAZolam 0.25 MG TAB PO SCH ×3 (08:52→21:25)
[2021-08-04] MEDS: Heparin 5,000 UNITS/ML VIAL SC SCH ×2 (08:53→21:26)
[2021-08-04] MEDS: Ferrous Sulfate 325 MG TAB PO SCH ×2 (08:53→17:24)
[2021-08-04] MEDS: Clobetasol 0.05% Cream 15 gm Tube TOP SCH ×2 (08:58→21:25)
[2021-08-04] MEDS: Escitalopram Oxalate 20 mg Tablet PO SCH (09:55)
[2021-08-04 11:50] LABS: SARS-CoV-2 PCR by NAA Not Detected (NotDetected)
[2021-08-04 13:04] VITALS: BMI 40.1
[2021-08-04] MEDS: Atorvastatin Calcium 40 MG TAB PO SCH (21:26)
[2021-08-04] MEDS: Famotidine 20 MG TAB PO SCH (21:26)
[2021-08-05] MEDS: Acetaminophen 325 MG TAB PO PRN (05:38)
[2021-08-05 06:20] LABS: #Basophils 0.1 thou/uL (0.0-0.2); #Eosinphils 0.3 thou/uL (0.0-0.7); #Lymphocytes 1.4 thou/uL (1.20-3.40); #Monocytes 1.1 thou/uL (0.11-0.59); #Neutrophils 6.6 thou/uL (1.40-6.50); %Basophils 0.6 % (0.0-1.0); %Eosinophils 3.5 % (0.0-10.0); %Lymphocytes 15.1 % (21.0-51.0); %Monocytes 11.1 % (0.0-10.0); %Neutrophils 69.6 % (42.0-75.0); Hemoglobin 9.5 g/dL (12.0-16.0); Mean Corpuscular HGB CONC 31.9 g/dL (32.0-36.0); Mean Corpuscular Hemoglobin 31.3 pg (27.0-31.0); Mean Corpuscular Volume 98.2 fL (78.0-98.0); Mean Platelet Volume 9.7 fL (7.4-10.4); Platelet Count 175 thou/uL (130-400); Red Blood Cell (RBC) Count 3.05 mill/uL (4.20-5.40); White Blood Cell (WBC) Count 9.5 thou/uL (4.8-10.8)
[2021-08-05 06:21] LABS: Anion Gap 20 mmol/L (10-20); BUN (Urea Nitrogen) 40 mg/dL (9.8-20.1); Calc. Creatinine Clearance 13 mL/min (70-130); Calcium 9.2 mg/dL (7.8-10.44); Carbon Dioxide 22 mmol/L (23-31); Chloride 99 mmol/L (98-107); Glucose 80 mg/dL (83-110); Potassium 4.1 mmol/L (3.5-5.1); Sodium 137 mmol/L (136-145)
[2021-08-05] MEDS ORDERED: READ PPD TEST SITE PO SCH (09:00)
[2021-08-05] MEDS: ALPRAZolam 0.25 MG TAB PO SCH ×3 (11:11→22:23)
[2021-08-05] MEDS ORDERED: Heparin 10,000 UNITS/ 10 ML VIAL ONE (11:12)
[2021-08-05] MEDS: Polyethylene Glycol 3350 17 GM Packet PO SCH (15:04)
[2021-08-05] MEDS: Ferrous Sulfate 325 MG TAB PO SCH ×2 (15:17→17:23)
[2021-08-05] MEDS: Amiodarone 200 MG TAB PO SCH ×2 (15:17→22:22)
[2021-08-05] MEDS: Aspirin Chewable 81 MG TAB PO SCH (15:18)
[2021-08-05] MEDS: Clobetasol 0.05% Cream 15 gm Tube TOP SCH ×2 (15:18→22:21)
[2021-08-05] MEDS: Cyanocobalamin (Vitamin B-12) 1,000 MCG TAB PO SCH (15:18)
[2021-08-05] MEDS: Heparin 5,000 UNITS/ML VIAL SC SCH ×2 (15:19→22:22)
[2021-08-05] MEDS: Escitalopram Oxalate 20 mg Tablet PO SCH (15:32)
[2021-08-05] MEDS: HYDROcodone/Acetaminophen 5/325 mg Tablet PO PRN (22:22)
[2021-08-05] MEDS: Famotidine 20 MG TAB PO SCH (22:23)
[2021-08-05] MEDS: Atorvastatin Calcium 40 MG TAB PO SCH (22:23)
[2021-08-06 04:57] LABS: #Eosinphils 0.4 thou/uL (0.0-0.7); #Lymphocytes 1.4 thou/uL (1.20-3.40); #Neutrophils 6.4 thou/uL (1.40-6.50); %Basophils 0.5 % (0.0-1.0); %Eosinophils 4.9 % (0.0-10.0); %Lymphocytes 14.6 % (21.0-51.0); %Monocytes 10.9 % (0.0-10.0); %Neutrophils 69.1 % (42.0-75.0); Hemoglobin 9.1 g/dL (12.0-16.0); Mean Corpuscular HGB CONC 31.8 g/dL (32.0-36.0); Mean Corpuscular Hemoglobin 31.2 pg (27.0-31.0); Mean Platelet Volume 9.5 fL (7.4-10.4); Platelet Count 165 thou/uL (130-400); RBC Distribution Width 15.9 % (11.5-14.5); Red Blood Cell (RBC) Count 2.93 mill/uL (4.20-5.40); White Blood Cell (WBC) Count 9.2 thou/uL (4.8-10.8)
[2021-08-06 05:17] LABS: Anion Gap 13 mmol/L (10-20); BUN (Urea Nitrogen) 20 mg/dL (9.8-20.1); Calc. Creatinine Clearance 21 mL/min (70-130); Calcium 9.1 mg/dL (7.8-10.44); Carbon Dioxide 28 mmol/L (23-31); Chloride 101 mmol/L (98-107); Glucose 95 mg/dL (83-110); Sodium 138 mmol/L (136-145)
[2021-08-06] MEDS: Heparin 5,000 UNITS/ML VIAL SC SCH ×2 (08:36→20:33)
[2021-08-06] MEDS: Ferrous Sulfate 325 MG TAB PO SCH ×2 (08:36→16:00)
[2021-08-06] MEDS: Clobetasol 0.05% Cream 15 gm Tube TOP SCH ×2 (08:37→20:35)
[2021-08-06] MEDS: Cyanocobalamin (Vitamin B-12) 1,000 MCG TAB PO SCH (08:37)
[2021-08-06] MEDS: Amiodarone 200 MG TAB PO SCH ×2 (08:37→20:32)
[2021-08-06] MEDS: Polyethylene Glycol 3350 17 GM Packet PO SCH (08:37)
[2021-08-06] MEDS: Aspirin Chewable 81 MG TAB PO SCH (08:37)
[2021-08-06] MEDS: ALPRAZolam 0.25 MG TAB PO SCH ×3 (08:37→20:32)
[2021-08-06] MEDS: Escitalopram Oxalate 20 mg Tablet PO SCH (11:05)
[2021-08-06] MEDS: HYDROcodone/Acetaminophen 5/325 mg Tablet PO PRN (12:04)
[2021-08-06] MEDS: Famotidine 20 MG TAB PO SCH (20:32)
[2021-08-06] MEDS: Atorvastatin Calcium 40 MG TAB PO SCH (20:32)
[2021-08-07 07:31] LABS: #Eosinphils 0.4 thou/uL (0.0-0.7); #Lymphocytes 1.4 thou/uL (1.20-3.40); #Monocytes 1.1 thou/uL (0.11-0.59); #Neutrophils 5.4 thou/uL (1.40-6.50); %Basophils 0.4 % (0.0-1.0); %Eosinophils 5.1 % (0.0-10.0); %Lymphocytes 16.7 % (21.0-51.0); %Monocytes 12.8 % (0.0-10.0); Hemoglobin 9.1 g/dL (12.0-16.0); Mean Corpuscular HGB CONC 30.6 g/dL (32.0-36.0); Mean Corpuscular Hemoglobin 30.8 pg (27.0-31.0); Mean Platelet Volume 9.6 fL (7.4-10.4); Platelet Count 158 thou/uL (130-400); RBC Distribution Width 15.4 % (11.5-14.5); Red Blood Cell (RBC) Count 2.95 mill/uL (4.20-5.40); White Blood Cell (WBC) Count 8.3 thou/uL (4.8-10.8)
[2021-08-07 08:10] LABS: Anion Gap 17 mmol/L (10-20); BUN (Urea Nitrogen) 33 mg/dL (9.8-20.1); Calc. Creatinine Clearance 19 mL/min (70-130); Calcium 9.3 mg/dL (7.8-10.44); Carbon Dioxide 25 mmol/L (23-31); Chloride 99 mmol/L (98-107); Glucose 84 mg/dL (83-110); Potassium 4.4 mmol/L (3.5-5.1); Sodium 137 mmol/L (136-145)
[2021-08-07] MEDS: ALPRAZolam 0.25 MG TAB PO SCH ×3 (08:29→20:44)
[2021-08-07] MEDS: Heparin 5,000 UNITS/ML VIAL SC SCH (09:28)
[2021-08-07] MEDS: Amiodarone 200 MG TAB PO SCH ×2 (09:28→20:44)
[2021-08-07] MEDS: Aspirin Chewable 81 MG TAB PO SCH (09:28)
[2021-08-07] MEDS: Clobetasol 0.05% Cream 15 gm Tube TOP SCH ×2 (09:29→20:44)
[2021-08-07] MEDS: Cyanocobalamin (Vitamin B-12) 1,000 MCG TAB PO SCH (09:29)
[2021-08-07] MEDS: Ferrous Sulfate 325 MG TAB PO SCH ×2 (09:29→18:18)
[2021-08-07] MEDS: Polyethylene Glycol 3350 17 GM Packet PO SCH (10:20)
[2021-08-07] MEDS: Escitalopram Oxalate 20 mg Tablet PO SCH (11:27)
[2021-08-07] MEDS ORDERED: EPOETIN ALFA-EPBX (ESRD) 10,000 UNIT/ML VIAL SC SCH (12:00)
[2021-08-07 14:33] LABS: Actual Bicarbonate (HCO3a) 27.3 mEq/L (22-28); CO2 Tension 40.4 mmHg (35.0-45.0); Calcium, Ionized (arterial) 1.17 mmol/L (1.12-1.30); Carboxyhemoglobin (COHb) 0.9 gm% (0.0-3.0); Hemoglobin (Hb) 9.8 g/dL (12.0-16.0); Potassium - ABG Lab 4.53 mmol/L (3.70-5.30); pH, Arterial 7.45 (7.35-7.45)
[2021-08-07 14:38] LABS: O2 Tension (PaO2), arterial 58.8 mmHg (> 70.0); Puncture Site LBA
[2021-08-07 14:46] LABS: Troponin I 0.093 ng/mL (< 0.028)
[2021-08-07 16:47] LABS: Troponin I 0.083 ng/mL (< 0.028)
[2021-08-07] MEDS ORDERED: Heparin 10,000 UNITS/ 10 ML VIAL SLOW IVP SCH (17:00)
[2021-08-07] MEDS ORDERED: Heparin 25,000 units/D5W 500 ML IVPB SCH (17:00)
[2021-08-07 17:23] LABS: Hemoglobin 9.3 g/dL (12.0-16.0); Platelet Count 169 thou/uL (130-400)
[2021-08-07 18:41] LABS: Troponin I 0.085 ng/mL (< 0.028)
[2021-08-07] MEDS: Atorvastatin Calcium 40 MG TAB PO SCH (20:44)
[2021-08-08 00:27] LABS: PTT Greater than 250.0 sec (22.9-36.1)
[2021-08-08 05:10] LABS: #Basophils 0.1 thou/uL (0.0-0.2); #Eosinphils 0.5 thou/uL (0.0-0.7); #Lymphocytes 1.4 thou/uL (1.20-3.40); #Monocytes 0.7 thou/uL (0.11-0.59); #Neutrophils 4.7 thou/uL (1.40-6.50); %Eosinophils 6.4 % (0.0-10.0); %Lymphocytes 19.3 % (21.0-51.0); %Monocytes 9.8 % (0.0-10.0); %Neutrophils 63.4 % (42.0-75.0); Hemoglobin 8.6 g/dL (12.0-16.0); Mean Corpuscular HGB CONC 31.8 g/dL (32.0-36.0); Mean Corpuscular Hemoglobin 31.5 pg (27.0-31.0); Mean Corpuscular Volume 98.9 fL (78.0-98.0); Mean Platelet Volume 9.5 fL (7.4-10.4); Platelet Count 153 thou/uL (130-400); RBC Distribution Width 15.2 % (11.5-14.5); Red Blood Cell (RBC) Count 2.73 mill/uL (4.20-5.40); White Blood Cell (WBC) Count 7.4 thou/uL (4.8-10.8)
[2021-08-08 05:54] LABS: PTT Greater than 250.0 sec (22.9-36.1)
[2021-08-08 06:42] LABS: Anion Gap 11 mmol/L (10-20); BUN (Urea Nitrogen) 44 mg/dL (9.8-20.1); Calc. Creatinine Clearance 21 mL/min (70-130); Calcium 9.2 mg/dL (7.8-10.44); Carbon Dioxide 31 mmol/L (23-31); Chloride 98 mmol/L (98-107); Glucose 73 mg/dL (83-110); Potassium 4.3 mmol/L (3.5-5.1); Sodium 136 mmol/L (136-145)
[2021-08-08 07:21] LABS: PTT 172.6 sec (22.9-36.1)
[2021-08-08] MEDS: ALPRAZolam 0.25 MG TAB PO SCH ×3 (08:23→21:15)
[2021-08-08] MEDS: Amiodarone 200 MG TAB PO SCH ×2 (08:23→21:15)
[2021-08-08] MEDS: Aspirin Chewable 81 MG TAB PO SCH (08:24)
[2021-08-08] MEDS: Clobetasol 0.05% Cream 15 gm Tube TOP SCH ×2 (08:24→21:16)
[2021-08-08] MEDS: Cyanocobalamin (Vitamin B-12) 1,000 MCG TAB PO SCH (08:24)
[2021-08-08] MEDS: Ferrous Sulfate 325 MG TAB PO SCH ×2 (08:24→17:43)
[2021-08-08] MEDS: Polyethylene Glycol 3350 17 GM Packet PO SCH (08:25)
[2021-08-08] MEDS ORDERED: Heparin 10,000 UNITS/ 10 ML VIAL ONE (09:22)
[2021-08-08] MEDS: Escitalopram Oxalate 20 mg Tablet PO SCH (10:42)
[2021-08-08] MEDS ORDERED: HYDROcodone/Acetaminophen 5/325 mg Tablet PO PRN (14:00)
[2021-08-08] MEDS: Heparin 5,000 UNITS/ML VIAL SC SCH (21:15)
[2021-08-08] MEDS: Atorvastatin Calcium 40 MG TAB PO SCH (21:15)
[2021-08-08] MEDS: Melatonin 3 MG TAB PO PRN (21:15)
[2021-08-09 04:41] LABS: #Basophils 0.1 thou/uL (0.0-0.2); #Eosinphils 0.3 thou/uL (0.0-0.7); #Lymphocytes 1.2 thou/uL (1.20-3.40); #Monocytes 0.8 thou/uL (0.11-0.59); #Neutrophils 4.9 thou/uL (1.40-6.50); %Basophils 0.8 % (0.0-1.0); %Eosinophils 4.8 % (0.0-10.0); %Monocytes 10.6 % (0.0-10.0); %Neutrophils 66.8 % (42.0-75.0); Hemoglobin 9.6 g/dL (12.0-16.0); Mean Corpuscular HGB CONC 30.5 g/dL (32.0-36.0); Platelet Count 181 thou/uL (130-400); RBC Distribution Width 15.6 % (11.5-14.5); White Blood Cell (WBC) Count 7.3 thou/uL (4.8-10.8)
[2021-08-09 04:45] LABS: ALT (SGPT) 14 U/L (8-55); AST (SGOT) 31 U/L (5-34); Albumin 3.5 g/dL (3.4-4.8); Alkaline Phosphatase 67 U/L (40-110); Anion Gap 12 mmol/L (10-20); BUN (Urea Nitrogen) 21 mg/dL (9.8-20.1); Bilirubin, Total 0.7 mg/dL (0.2-1.2); Calc. Creatinine Clearance 29 mL/min (70-130); Calcium 9.3 mg/dL (7.8-10.44); Carbon Dioxide 29 mmol/L (23-31); Chloride 100 mmol/L (98-107); Globulin 2.9 g/dL (2.4-3.5); Glucose 77 mg/dL (83-110); Phosphorus 3.7 mg/dL (2.3-4.7); Protein, Total 6.4 g/dL (5.8-8.1); Sodium 137 mmol/L (136-145)
[2021-08-09] MEDS: Cyanocobalamin (Vitamin B-12) 1,000 MCG TAB PO SCH (09:12)
[2021-08-09] MEDS: Amiodarone 200 MG TAB PO SCH ×2 (09:13→21:38)
[2021-08-09] MEDS: ALPRAZolam 0.25 MG TAB PO SCH ×3 (09:13→21:38)
[2021-08-09] MEDS: Folic Acid 1 MG TAB PO SCH (09:13)
[2021-08-09] MEDS: Ferrous Sulfate 325 MG TAB PO SCH ×2 (09:14→17:08)
[2021-08-09] MEDS: Aspirin Chewable 81 MG TAB PO SCH (09:14)
[2021-08-09] MEDS: Heparin 5,000 UNITS/ML VIAL SC SCH ×2 (09:14→21:39)
[2021-08-09] MEDS: Polyethylene Glycol 3350 17 GM Packet PO SCH (09:15)
[2021-08-09] MEDS: Clobetasol 0.05% Cream 15 gm Tube TOP SCH ×2 (09:15→21:40)
[2021-08-09] MEDS: Escitalopram Oxalate 20 mg Tablet PO SCH (10:29)
[2021-08-09] MEDS: Acetaminophen 325 MG TAB PO PRN ×2 (11:55→21:38)
[2021-08-09] MEDS: Atorvastatin Calcium 40 MG TAB PO SCH (21:39)
[2021-08-09] MEDS: Melatonin 3 MG TAB PO PRN (21:39)
[2021-08-10 05:33] LABS: #Basophils 0.1 thou/uL (0.0-0.2); #Eosinphils 0.4 thou/uL (0.0-0.7); #Lymphocytes 1.4 thou/uL (1.20-3.40); %Basophils 1.2 % (0.0-1.0); %Eosinophils 4.8 % (0.0-10.0); %Lymphocytes 18.1 % (21.0-51.0); %Neutrophils 62.9 % (42.0-75.0); Hemoglobin 9.5 g/dL (12.0-16.0); Mean Corpuscular HGB CONC 31.3 g/dL (32.0-36.0); Mean Corpuscular Hemoglobin 31.3 pg (27.0-31.0); Mean Platelet Volume 9.7 fL (7.4-10.4); Platelet Count 197 thou/uL (130-400); RBC Distribution Width 15.1 % (11.5-14.5); Red Blood Cell (RBC) Count 3.04 mill/uL (4.20-5.40); White Blood Cell (WBC) Count 7.9 thou/uL (4.8-10.8)
[2021-08-10 05:55] LABS: Anion Gap 27 mmol/L (10-20); BUN (Urea Nitrogen) 32 mg/dL (9.8-20.1); Calc. Creatinine Clearance 22 mL/min (70-130); Calcium 9.2 mg/dL (7.8-10.44); Carbon Dioxide 14 mmol/L (23-31); Chloride 100 mmol/L (98-107); Glucose 83 mg/dL (83-110); Potassium 3.6 mmol/L (3.5-5.1); Sodium 137 mmol/L (136-145)
[2021-08-10] MEDS: Heparin 5,000 UNITS/ML VIAL SC SCH (09:40)
[2021-08-10] MEDS: Cyanocobalamin (Vitamin B-12) 1,000 MCG TAB PO SCH (09:41)
[2021-08-10] MEDS: ALPRAZolam 0.25 MG TAB PO SCH ×2 (09:41→15:32)
[2021-08-10] MEDS: Amiodarone 200 MG TAB PO SCH (09:41)
[2021-08-10] MEDS: Ferrous Sulfate 325 MG TAB PO SCH ×2 (09:41→15:32)
[2021-08-10] MEDS: Escitalopram Oxalate 20 mg Tablet PO SCH (09:41)
[2021-08-10] MEDS: Aspirin Chewable 81 MG TAB PO SCH (09:41)
[2021-08-10] MEDS: Folic Acid 1 MG TAB PO SCH (09:41)
[2021-08-10] MEDS: Clobetasol 0.05% Cream 15 gm Tube TOP SCH (09:41)
[2021-08-10] MEDS: Polyethylene Glycol 3350 17 GM Packet PO SCH (09:42)
[2021-08-10 15:55] VITALS: BP 163/76; TEMP 97.5
== END 2021-08-10 18:30 | DRG 235 ==
LOC: 2NO 23:12 → CCU 07-14 07:59 → IMCU/EMU 07-27 18:09 → 2NO 07-30 15:23
PROVIDERS: ADMIT Family Medicine; ATTEND Family Medicine
PROC: 0JH63XZ Insertion of Tunneled Vascular Access Device into Chest Subcutaneous Tissue and Fascia, Percutaneous Approach (ICD-10-PCS; 2021-07-09)
PROC: 02HV33Z Insertion of Infusion Device into Superior Vena Cava, Percutaneous Approach (ICD-10-PCS; 2021-07-09)
PROC: B548ZZA Ultrasonography of Superior Vena Cava, Guidance (ICD-10-PCS; 2021-07-09)
PROC: 02100Z9 Bypass Coronary Artery, One Artery from Left Internal Mammary, Open Approach (ICD-10-PCS; principal; 2021-07-14)
PROC: 021109W Bypass Coronary Artery, Two Arteries from Aorta with Autologous Venous Tissue, Open Approach (ICD-10-PCS; 2021-07-14)
PROC: 06BQ4ZZ Excision of Left Saphenous Vein, Percutaneous Endoscopic Approach (ICD-10-PCS; 2021-07-14)
PROC: 5A1221Z Performance of Cardiac Output, Continuous (ICD-10-PCS; 2021-07-14)
PROC: 02L70ZK Occlusion of Left Atrial Appendage, Open Approach (ICD-10-PCS; 2021-07-14)
PROC: 30233N1 Transfusion of Nonautologous Red Blood Cells into Peripheral Vein, Percutaneous Approach (ICD-10-PCS; 2021-07-14)
PROC: 3E033XZ Introduction of Vasopressor into Peripheral Vein, Percutaneous Approach (ICD-10-PCS; 2021-07-15)
PROC: 5A09557 Assistance with Respiratory Ventilation, Greater than 96 Consecutive Hours, Continuous Positive Airway Pressure (ICD-10-PCS; 2021-07-15)
PROC: 5A2204Z Restoration of Cardiac Rhythm, Single (ICD-10-PCS; 2021-07-16)
PROC: 06HY33Z Insertion of Infusion Device into Lower Vein, Percutaneous Approach (ICD-10-PCS; 2021-07-19)
PROC: 5A1D70Z Performance of Urinary Filtration, Intermittent, Less than 6 Hours Per Day (ICD-10-PCS; 2021-07-19)
DX: I13.0 Hypertensive heart and chronic kidney disease with heart failure and stage 1 through stage 4 chronic kidney disease, or unspecified chronic kidney disease (principal); I50.33 Acute on chronic diastolic (congestive) heart failure; J96.01 Acute respiratory failure with hypoxia; N17.0 Acute kidney failure with tubular necrosis; G93.41 Metabolic encephalopathy; R57.1 Hypovolemic shock; R65.21 Severe sepsis with septic shock; A41.9 Sepsis, unspecified organism; Z68.41 Body mass index [BMI] 40.0-44.9, adult; E87.1 Hypo-osmolality and hyponatremia; Z20.822 Contact with and (suspected) exposure to COVID-19; E78.5 Hyperlipidemia, unspecified; E03.9 Hypothyroidism, unspecified; I73.9 Peripheral vascular disease, unspecified; E87.6 Hypokalemia; I25.10 Atherosclerotic heart disease of native coronary artery without angina pectoris; E66.01 Morbid (severe) obesity due to excess calories; N18.32 Chronic kidney disease, stage 3b; D51.9 Vitamin B12 deficiency anemia, unspecified; I48.0 Paroxysmal atrial fibrillation; M79.675 Pain in left toe(s); Z86.718 Personal history of other venous thrombosis and embolism; Z88.2 Allergy status to sulfonamides; Z79.899 Other long term (current) drug therapy; Z79.82 Long term (current) use of aspirin; Z95.5 Presence of coronary angioplasty implant and graft; Z90.49 Acquired absence of other specified parts of digestive tract; Z90.710 Acquired absence of both cervix and uterus; Z90.09 Acquired absence of other part of head and neck; Z91.011 Allergy to milk products
CPT/HCPCS: 36415; 36416; 36430; 36600; 71045; 71046; 74230; 78451; 80048; 80053; 80074; 80076; 80202; 81001; 82607; 82746; 82805; 83540; 83550; 83735; 84100; 84484; 85025; 85379; 85610; 85730; 86580; 86704; 86706; 86803; 86850; 86900; 86901; 87070; 87205; 87340; 90935; 93005; 93010; 93306; 93970; 94002; 94150; 94640; 94660; A9540; C1713; C1752; C1776; G0257; J0171; J0282; J0360; J0690; J0692; J1100; J1265; J1630; J1642; J1644; J1650; J1815; J1940; J2001; J2150; J2250; J2270; J2370; J2405; J2440; J2704; J2720; J3010; J3370; J3475; J3480; J3490; J7050; J7070; J7120; J7620; P9016; P9045; P9047; Q5105; S0017; S0020; S0028; U0002; U0003; U0005

== ENCOUNTER 2021-10-18 16:13 | Inpatient (IN) | payer OTHER, SELFPAY ==
[~2021-10-18 16:13] MED LIST: Iopamidol-370 76% 500 ML 1 ML ONE
[2021-10-18] MEDS ORDERED: methylPREDNISolone Sod Succ/PF 125 MG/2 ML VIAL ONE (16:48)
[2021-10-18] MEDS ORDERED: Furosemide 40 MG/4 ML VIAL ONE (16:48)
[2021-10-18] MEDS ORDERED: Nitroglycerin 2% Ointment 1 INCH/1 GM Packet ONE (16:48)
[2021-10-18 17:02] LABS: #Lymphocytes 0.7 thou/uL (1.20-3.40); #Monocytes 0.7 thou/uL (0.11-0.59); #Neutrophils 10.6 thou/uL (1.40-6.50); %Basophils 0.2 % (0.0-1.0); %Eosinophils 0.1 % (0.0-10.0); %Lymphocytes 6.2 % (21.0-51.0); %Monocytes 5.4 % (0.0-10.0); %Neutrophils 88.2 % (42.0-75.0); Hemoglobin 12.3 g/dL (12.0-16.0); Mean Corpuscular HGB CONC 32.6 g/dL (32.0-36.0); Mean Corpuscular Hemoglobin 32.8 pg (27.0-31.0); Mean Platelet Volume 8.8 fL (7.4-10.4); Platelet Count 202 thou/uL (130-400); RBC Distribution Width 15.1 % (11.5-14.5); Red Blood Cell (RBC) Count 3.75 mill/uL (4.20-5.40); White Blood Cell (WBC) Count 12.1 thou/uL (4.8-10.8)
[2021-10-18 17:19] LABS: ALT (SGPT) 11 U/L (8-55); AST (SGOT) 27 U/L (5-34); Albumin 3.4 g/dL (3.4-4.8); Alkaline Phosphatase 86 U/L (40-110); Anion Gap 16 mmol/L (10-20); BUN (Urea Nitrogen) 14 mg/dL (9.8-20.1); Bilirubin, Total 0.8 mg/dL (0.2-1.2); CK (CPK) 48 U/L (29-168); Calc. Creatinine Clearance 0 mL/min (70-130); Calcium 8.9 mg/dL (7.8-10.44); Carbon Dioxide 20 mmol/L (23-31); Chloride 110 mmol/L (98-107); Globulin 2.5 g/dL (2.4-3.5); Glucose 131 mg/dL (83-110); Potassium 3.8 mmol/L (3.5-5.1); Protein, Total 5.9 g/dL (5.8-8.1); Sodium 142 mmol/L (136-145)
[2021-10-18 17:25] LABS: ALV-art Gradient 114.485 mmHg (0-20); Actual Bicarbonate (HCO3a) 23.6 mEq/L (22-28); Analyzer IN Cardio ER; CO2 Tension 35.1 mmHg (35.0-45.0); Calcium, Ionized (arterial) 1.17 mmol/L (1.12-1.30); Carboxyhemoglobin (COHb) 0.3 gm% (0.0-3.0); Hemoglobin (Hb) 12.7 g/dL (12.0-16.0); O2 Tension (PaO2), arterial 69.8 mmHg (> 70.0); Potassium - ABG Lab 3.64 mmol/L (3.70-5.30); Puncture Site RBA; pH, Arterial 7.45 (7.35-7.45)
[2021-10-18 17:44] LABS: CKMB 2.2 ng/mL (0-6.6)
[2021-10-18] MEDS ORDERED: Enoxaparin Sodium 80 MG/0.8 ML SYRINGE ONE (17:57)
[2021-10-18 18:06] LABS: SARS-CoV-2 NAA Rapid Test Not Detected (NotDetected)
[2021-10-18] MEDS ORDERED: Lorazepam 2 MG/ML VIAL ONE (18:50)
[2021-10-18] MEDS ORDERED: Ondansetron PF 4 MG/2 ML Vial IVP PRN (20:45)
[2021-10-18] MEDS ORDERED: Acetaminophen 325 MG TAB PO PRN (20:45)
[2021-10-18] MEDS ORDERED: Ondansetron ODT 4 MG TAB SL PRN (20:45)
[2021-10-18 21:46] LABS: Troponin I 0.889 ng/mL (< 0.028)
[2021-10-18] MEDS ORDERED: Nitroglycerin 0.4 MG TAB (25 Tab Bottle) SL PRN (22:18)
[2021-10-18 23:45] LABS: Troponin I 1.074 ng/mL (< 0.028)
[2021-10-19 04:38] LABS: Bacteria/HPF None Seen HPF (None Seen); Bilirubin Negative (Negative); Blood, Urine Negative (Negative); Clarity Clear (Clear); Glucose, Urine (Dipstick) Normal (Negative); Ketone, Urine Negative (Negative); Leukocyte 25 Leu/uL (Negative); Nitrite Negative (Negative); Protein, Urine (Dipstick) Negative (Neg-Trace); RBC/HPF 0-3 HPF (0-3); Specific Gravity, Urine 1.026 (1.002-1.036); Squamous Epithelial 0-3 HPF (0-3); Urobilinogen Normal mg/dL (Less than 2); WBC/HPF 0-3 HPF (0-3)
[2021-10-19 05:02] LABS: Urine Culture Reflex Yes Yes
[2021-10-19] MEDS: Furosemide 40 MG/4 ML VIAL SLOW IVP SCH ×2 (05:43→16:33)
[2021-10-19] MEDS ORDERED: Enoxaparin Sodium 80 MG/0.8 ML SYRINGE SC SCH (10:00)
[2021-10-19] MEDS: Aspirin Chewable 81 MG TAB PO SCH (10:20)
[2021-10-19] MEDS: Escitalopram Oxalate 20 mg Tablet PO SCH (10:20)
[2021-10-19] MEDS: Amiodarone 200 MG TAB PO SCH (10:21)
[2021-10-19] MEDS: Folic Acid 1 MG TAB PO SCH (10:21)
[2021-10-19] MEDS: Ferrous Sulfate 325 MG TAB PO SCH ×2 (10:21→16:33)
[2021-10-19] MEDS: traMADol HCl 50 MG TAB PO PRN ×2 (11:19→22:14)
[2021-10-19] MEDS: Pramipexole Di-HCl 0.25 MG TAB PO SCH (20:53)
[2021-10-19] MEDS: Atorvastatin Calcium 40 MG TAB PO SCH (20:54)
[2021-10-19] MEDS: Enoxaparin Sodium 80 MG/0.8 ML SYRINGE SC SCH (20:54)
[2021-10-19] MEDS ORDERED: ALPRAZolam 0.25 MG TAB PO SCH (22:30)
[2021-10-20 05:09] LABS: #Monocytes 0.8 thou/uL (0.11-0.59); #Neutrophils 10.3 thou/uL (1.40-6.50); %Basophils 0.1 % (0.0-1.0); %Eosinophils 0.2 % (0.0-10.0); %Lymphocytes 8.5 % (21.0-51.0); %Monocytes 6.7 % (0.0-10.0); %Neutrophils 84.5 % (42.0-75.0); Hemoglobin 11.7 g/dL (12.0-16.0); Mean Corpuscular HGB CONC 32.5 g/dL (32.0-36.0); Mean Corpuscular Hemoglobin 32.9 pg (27.0-31.0); Platelet Count 175 thou/uL (130-400); RBC Distribution Width 15.1 % (11.5-14.5); Red Blood Cell (RBC) Count 3.55 mill/uL (4.20-5.40); White Blood Cell (WBC) Count 12.2 thou/uL (4.8-10.8)
[2021-10-20 05:25] LABS: ALT (SGPT) 10 U/L (8-55); AST (SGOT) 27 U/L (5-34); Albumin 2.9 g/dL (3.4-4.8); Alkaline Phosphatase 64 U/L (40-110); Anion Gap 16 mmol/L (10-20); BUN (Urea Nitrogen) 21 mg/dL (9.8-20.1); Bilirubin, Total 0.6 mg/dL (0.2-1.2); Calc. Creatinine Clearance 33 mL/min (70-130); Calcium 8.6 mg/dL (7.8-10.44); Carbon Dioxide 24 mmol/L (23-31); Cardiac Risk 3.3 (Less than 4.5); Chloride 105 mmol/L (98-107); Cholesterol 149 mg/dl (< 200 Desired); Globulin 2.6 g/dL (2.4-3.5); Glucose 93 mg/dL (83-110); HDL Cholesterol 45 mg/dL (>60 Neg Risk); LDL Cholesterol, Calculated 84 mg/dL; Potassium 3.5 mmol/L (3.5-5.1); Protein, Total 5.5 g/dL (5.8-8.1); Sodium 141 mmol/L (136-145); Triglycerides 99 mg/dL (Less than 150)
[2021-10-20] MEDS: Furosemide 40 MG/4 ML VIAL SLOW IVP SCH ×2 (05:34→15:00)
[2021-10-20] MEDS: Escitalopram Oxalate 20 mg Tablet PO SCH (08:56)
[2021-10-20] MEDS: Aspirin Chewable 81 MG TAB PO SCH (08:56)
[2021-10-20] MEDS: Amiodarone 200 MG TAB PO SCH (08:56)
[2021-10-20] MEDS: Folic Acid 1 MG TAB PO SCH (08:56)
[2021-10-20] MEDS: Ferrous Sulfate 325 MG TAB PO SCH ×2 (08:56→17:21)
[2021-10-20] MEDS: Enoxaparin Sodium 80 MG/0.8 ML SYRINGE SC SCH ×2 (08:57→20:20)
[2021-10-20] MEDS: ALPRAZolam 0.25 MG TAB PO SCH ×3 (08:57→20:19)
[2021-10-20] MEDS: Atorvastatin Calcium 40 MG TAB PO SCH (20:20)
[2021-10-20] MEDS: Pramipexole Di-HCl 0.25 MG TAB PO SCH (20:20)
[2021-10-20] MEDS: traMADol HCl 50 MG TAB PO PRN (21:35)
[2021-10-21 04:15] LABS: #Basophils 0.1 thou/uL (0.0-0.2); #Eosinphils 0.2 thou/uL (0.0-0.7); #Lymphocytes 1.5 thou/uL (1.20-3.40); #Monocytes 0.6 thou/uL (0.11-0.59); #Neutrophils 5.5 thou/uL (1.40-6.50); %Basophils 0.7 % (0.0-1.0); %Lymphocytes 19.2 % (21.0-51.0); %Monocytes 8.2 % (0.0-10.0); %Neutrophils 69.9 % (42.0-75.0); Hemoglobin 10.6 g/dL (12.0-16.0); Mean Corpuscular HGB CONC 32.9 g/dL (32.0-36.0); Mean Corpuscular Hemoglobin 32.7 pg (27.0-31.0); Mean Corpuscular Volume 99.4 fL (78.0-98.0); Platelet Count 158 thou/uL (130-400); RBC Distribution Width 14.9 % (11.5-14.5); Red Blood Cell (RBC) Count 3.23 mill/uL (4.20-5.40); White Blood Cell (WBC) Count 7.8 thou/uL (4.8-10.8)
[2021-10-21 04:36] LABS: Anion Gap 14 mmol/L (10-20); BUN (Urea Nitrogen) 20 mg/dL (9.8-20.1); Calc. Creatinine Clearance 33 mL/min (70-130); Calcium 8.3 mg/dL (7.8-10.44); Carbon Dioxide 27 mmol/L (23-31); Chloride 101 mmol/L (98-107); Glucose 85 mg/dL (83-110); Sodium 139 mmol/L (136-145)
[2021-10-21] MEDS: Furosemide 40 MG/4 ML VIAL SLOW IVP SCH ×2 (05:23→14:26)
[2021-10-21] MEDS ORDERED: Potassium Chloride 20 MEQ TAB PO SCH (07:45)
[2021-10-21] MEDS: traMADol HCl 50 MG TAB PO PRN ×2 (08:30→20:15)
[2021-10-21] MEDS: Amiodarone 200 MG TAB PO SCH (08:30)
[2021-10-21] MEDS: Ferrous Sulfate 325 MG TAB PO SCH ×2 (08:33→16:28)
[2021-10-21] MEDS: Enoxaparin Sodium 80 MG/0.8 ML SYRINGE SC SCH ×2 (08:33→20:16)
[2021-10-21] MEDS: Folic Acid 1 MG TAB PO SCH (08:33)
[2021-10-21] MEDS: Aspirin Chewable 81 MG TAB PO SCH (08:33)
[2021-10-21] MEDS: ALPRAZolam 0.25 MG TAB PO SCH ×3 (08:33→20:16)
[2021-10-21] MEDS: Escitalopram Oxalate 20 mg Tablet PO SCH (08:33)
[2021-10-21 10:10] VITALS: BMI 35.3
[2021-10-21] MEDS: Atorvastatin Calcium 40 MG TAB PO SCH (20:16)
[2021-10-21] MEDS: Pramipexole Di-HCl 0.25 MG TAB PO SCH (20:16)
[2021-10-22 04:42] LABS: #Basophils 0.1 thou/uL (0.0-0.2); #Eosinphils 0.2 thou/uL (0.0-0.7); #Lymphocytes 1.6 thou/uL (1.20-3.40); #Monocytes 0.6 thou/uL (0.11-0.59); #Neutrophils 4.9 thou/uL (1.40-6.50); %Basophils 0.8 % (0.0-1.0); %Eosinophils 3.2 % (0.0-10.0); %Monocytes 8.1 % (0.0-10.0); %Neutrophils 65.9 % (42.0-75.0); Hemoglobin 11.8 g/dL (12.0-16.0); Mean Corpuscular HGB CONC 32.8 g/dL (32.0-36.0); Mean Corpuscular Hemoglobin 33.1 pg (27.0-31.0); Mean Platelet Volume 9.7 fL (7.4-10.4); Platelet Count 161 thou/uL (130-400); RBC Distribution Width 14.9 % (11.5-14.5); Red Blood Cell (RBC) Count 3.56 mill/uL (4.20-5.40); White Blood Cell (WBC) Count 7.4 thou/uL (4.8-10.8)
[2021-10-22 05:00] LABS: Anion Gap 14 mmol/L (10-20); BUN (Urea Nitrogen) 19 mg/dL (9.8-20.1); Calc. Creatinine Clearance 30 mL/min (70-130); Calcium 8.8 mg/dL (7.8-10.44); Carbon Dioxide 30 mmol/L (23-31); Chloride 100 mmol/L (98-107); Glucose 78 mg/dL (83-110); Potassium 3.3 mmol/L (3.5-5.1); Sodium 141 mmol/L (136-145)
[2021-10-22] MEDS ORDERED: Furosemide 40 MG TAB PO SCH (07:30)
[2021-10-22] MEDS ORDERED: Potassium Chloride 20 MEQ TAB PO SCH (08:45)
[2021-10-22] MEDS ORDERED: Lidocaine 1% w/Epinephrine 1:100K 20 ML VIAL ONE (08:55)
[2021-10-22] MEDS ORDERED: Lidocaine 1% w/Epinephrine 1:100K 20 ML VIAL FS SCH (09:15)
[2021-10-22] MEDS: Aspirin Chewable 81 MG TAB PO SCH (09:31)
[2021-10-22] MEDS: Ferrous Sulfate 325 MG TAB PO SCH (09:32)
[2021-10-22] MEDS: Folic Acid 1 MG TAB PO SCH (09:32)
[2021-10-22] MEDS: ALPRAZolam 0.25 MG TAB PO SCH (09:32)
[2021-10-22] MEDS: Escitalopram Oxalate 20 mg Tablet PO SCH (09:32)
[2021-10-22] MEDS: Amiodarone 200 MG TAB PO SCH (09:32)
[2021-10-22 11:50] VITALS: BP 153/69; TEMP 96.8
[2021-10-22] MEDS ORDERED: Enoxaparin Sodium 80 MG/0.8 ML SYRINGE SC SCH (21:00)
== END 2021-10-22 12:30 | DRG 280 ==
LOC: ERS 16:13 → ERHOLD 18:52 → 2NO 20:32
PROVIDERS: ADMIT Hospitalist; ATTEND Hospitalist
PROC: 05PYX3Z Removal of Infusion Device from Upper Vein, External Approach (ICD-10-PCS; principal; 2021-10-22)
DX: I13.0 Hypertensive heart and chronic kidney disease with heart failure and stage 1 through stage 4 chronic kidney disease, or unspecified chronic kidney disease (principal); I50.33 Acute on chronic diastolic (congestive) heart failure; I21.A1 Myocardial infarction type 2; J96.01 Acute respiratory failure with hypoxia; Z20.822 Contact with and (suspected) exposure to COVID-19; E78.5 Hyperlipidemia, unspecified; E03.9 Hypothyroidism, unspecified; I25.10 Atherosclerotic heart disease of native coronary artery without angina pectoris; N18.9 Chronic kidney disease, unspecified; F32.A Depression, unspecified; F41.9 Anxiety disorder, unspecified; G25.81 Restless legs syndrome; E87.6 Hypokalemia; Z86.718 Personal history of other venous thrombosis and embolism; Z95.1 Presence of aortocoronary bypass graft; Z91.14 Patient's other noncompliance with medication regimen; Z88.2 Allergy status to sulfonamides; Z91.011 Allergy to milk products; Z90.49 Acquired absence of other specified parts of digestive tract; Z90.89 Acquired absence of other organs; Z95.5 Presence of coronary angioplasty implant and graft; Z90.710 Acquired absence of both cervix and uterus; Z79.899 Other long term (current) drug therapy; Z79.82 Long term (current) use of aspirin
CPT/HCPCS: 0439T; 36415; 36600; 71045; 71275; 80048; 80053; 80061; 81001; 82550; 82553; 82805; 83605; 83880; 84484; 85025; 87040; 87077; 87086; 87149; 93005; 93306; 93798; 94760; 96372; 96374; 96375; J1650; J1940; J2060; J2930; J7620; Q9967; U0002